=== PATIENT | female | born 1950 | race Caucasian/White ===

== ENCOUNTER 2016-11-19 11:41 | Inpatient (IN) ==
[2016-11-19] MEDS ORDERED: SODIUM CHLORIDE 0.9% 1,000 ML IV STA (12:47)
[2016-11-19] MEDS ORDERED: MECLIZINE 25 MG TABLET PO STA (12:47)
--- NOTE | 2016-11-19 12:47 | Emergency Department Note ---
IConnie Mantricia, am scribing for, and in the presence of, Sylvia Peck DO 12:37. I, Sylvia Peck DO, personally performed the services described in this documentation, ascribed by Shanthi Rosales in my presence, and it is both accurate and complete . Arrival - Arrival Chief Complaint: Dizziness Stated Complaint: problems Standing, Right side weak ED Nursing Triage Note: C/O " DIZZINESS SINCE LAST EVENING., STATES GETTING WORSE., FAMILY MEMBER STATES SHE FELL ON MONDAY AND HAS HAD THE DIZZINESS SINCE THEN, ALSO STATES HAS A HEADACHE., STATES SHE JUST WEAK ALL OVER., STATES WAS EVALUATED HERE ON MONDAY AT THE TIME OF THE FALL Mode of Arrival: Wheelchair Limitations: No Limitations Source: Patient Time Seen by Provider: 11/19/16 12:13 - History of Present Illness HPI Narrative: Pt is a 66 y/o white female arriving to the ED by EMS with c/o dizziness that onset yesterday. She states the pain is worsening and she has a headache. She fell Monday and Monday and hit her head both times. She was given a CT head due to her Monday episode. Pt's PSHx is is brain surgery 11 years ago due to right-sided brain tumor. She lives alone with brother a few minutes away. Onset (ago): day(s) Consistency: constant Severity: mild Quality: aching Allergies/Adverse Reactions: Allergies Allergy/AdvReac Type Severity Reaction Status Date / Time Sulfa (Sulfonamide Allergy RASH Verified 11/19/16 11:50 Antibiotics) promethazine [From Phenergan] AdvReac Confusion Verified 11/19/16 11:50 Home Medications: Home Medications Medication Instructions Recorded Confirmed Type Dexlansoprazole [Dexilant] 60 mg PO DAILY 11/24/14 11/19/16 History Fluticasone 50 Mcg Nasal [place] 2 spray BOTH NARES DAILY 11/24/14 11/19/16 History [Flonase Nasal [place]] Meclizine [Antivert] 25 mg PO QID #40 tablet 11/22/15 11/19/16 Rx Alendronate [Fosamax] 70 mg PO MO 11/15/16 11/19/16 History Docusate Sodium [Colace] 100 mg PO BEDTIME 11/15/16 11/19/16 History Escitalopram [Lexapro] 10 mg PO DAILY 11/15/16 11/19/16 History Levothyroxine Tab [Synthroid Tab] 75 mcg PO DAILY 11/15/16 11/19/16 History Lisinopril 15 mg PO DAILY 11/15/16 11/19/16 History Metoclopramide Tab [Reglan Tab] 5 mg PO TID 11/15/16 11/19/16 History Metoprolol Succinate Xl [Toprol Xl] 50 mg PO BEDTIME 11/15/16 11/19/16 History Solifenacin [Vesicare] 5 mg PO DAILY 11/15/16 11/19/16 History Review of System - Review of System Constitutional: Absent: chills, diaphoresis, fever Eyes: Absent: discharge, pain, redness Head/Ears/Nose/Throat: Absent: earache Respiratory: Absent: cough Cardiovascular: Absent: chest pain, palpitations, dyspnea on exertion Gastrointestinal: Absent: abdominal pain, nausea, vomiting, diarrhea Genitourinary female: Absent: abnormal menses, dysuria, discharge Musculoskeletal: Absent: arm pain, back pain, lower back pain, leg pain, neck pain Skin: Present: as per HPI. Absent: rash, lesions Neurological: Present: headache, vertigo Psychiatric: Absent: anxiety, depression Medical,Surgical,& Family Hx - Medical History Cardio: History of: Cardiac Dysrhythmia, Hypertension No history of: Aneurysm, Cerebrovascular Disease Neurology: History of: Seizures (resolved), Neurological Problems (status post resection of a brain tumor) HEENT: History of: Ear Problem (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 [place]) Genitourinary: History of: Recurring Urinary Tract Infections Musculoskeletal: History of: Back/Neck Problems, Degenerative Disk Disease No history of: Amputation Other: History of: Miscellaneous Medical Problems (meningioma ) - Surgical History Cardiac Surgeries: Patient Denies: Femoral-Popliteal Bypass Graft, Cardiac Catheterization, Cardiac Surgery, Carotid Endarterectomy, Internal Defibrillator, Vascular Access Devices Thoracic Surgeries: Patient denies;: Lobectomy Neurologic Surgeries: Surgical HX of: Neurologic Surgery (brain surgery 2005) HEENT Surgeries: Patient denies: Carotid Endarterectomy Abdominal Surgeries: Patient denies: Abdominal Surgery, Splenectomy Reproductive Surgeries: Surgical HX of;: Hysterectomy Patient denies;: Genitourinary Surgery Orthopedic Surgeries: Surgical HX of;: Orthopedic Surgery (KNEE SCOPES) - Family History Family History: Reports;: Family Cancer, Family Diabetes, Family Heart Disease Denies;: Family Anesthesia Reaction, Family Hypertension, Family Psychiatric Problems, Family Stroke - Social History Smoking Status: Never smoker Frequency of Alcohol Use: None Type of Drug Use: None Exam Vital Signs: Vital Signs Temperature 98.2 F 11/19/16 12:01 Pulse Rate 99 H 11/19/16 15:45 Respiratory Rate 15 11/19/16 15:00 Blood Pressure 137/78 11/19/16 15:45 O2 Sat by Pulse Oximetry 99 11/19/16 15:45 - General General appearance: alert, in no apparent distress - Head Head exam: Present: atraumatic, normocephalic, normal inspection - Eye Eye exam: Present: normal appearance, PERRL, EOMI - ENT ENT exam: Present: normal exam, normal oropharynx, mucous membranes moist, TM's normal bilaterally, normal external ear exam - Neck Neck exam: Present: normal inspection, full ROM, trachea midline. Absent: tenderness - Chest Chest inspection: Present: normal inspection, symmetric chest wall rise. Absent : tenderness - Respiratory Respiratory exam: Present: normal lung sounds bilaterally - Cardiovascular Cardiovascular exam: Present: regular rate, normal rhythm, normal heart sounds - Abdominal Exam Abdominal exam: Present: soft, normal bowel sounds. Absent: distention, tenderness, guarding, rebound - Extremities Exam Extremities exam: Present: normal inspection, full ROM, normal capillary refill. Absent: tenderness, pedal edema - Back Exam Back exam: Present: normal inspection, full ROM. Absent: tenderness - Neurological Exam Neurological exam: Present: alert, oriented X3, CN II-XII intact, reflexes normal - Psychiatric Psychiatric exam: Present: normal affect, normal mood - Skin Skin exam: Present: warm, dry, intact, normal color, other (right-sided brain surgery scar ) Results - Labs CBC & BMP: 11/19/16 12:39 11/19/16 12:39 - Diagnostic Findings Procedure: CT: report reviewed by me (Head: No acute intracranial abnormality compared to the previous study.Postsurgical changes in the right temporal lobe region as before. ) Disposition Disposition: Still a Patient Condition: Stable
[2016-11-19 12:56] LABS: Basophils % 0.2 % (0.0-0.8); Eosinophils # 0.1 10*3/uL (0.0-0.87); Hematocrit 34.9 VOL% (35.7-47.0); Hemoglobin 11.8 GM/DL (12.0-16.0); Immature Granulocytes % 0.5 %; Immature Granulocytes Absolute 0.03 #; Lymphocytes # 0.7 10*3/uL (1.4-4.0); Mean Corpuscular HGB Conc 33.8 GM/DL (32-36); Mean Corpuscular Hemoglobin 30 PG (27-34); Mean Corpuscular Volume 89.7 FL (87-102); Mean Platelet Volume 10.3 FL (9.6-12.0); Monocytes # 0.7 10*3/uL (0.11-0.8); Monocytes % 12.4 % (1.7-12.7); Neutrophils # 4.4 10*3/uL (1.4-7.4); Neutrophils % 74.9 % (38.7-73.9); Platelet Count 231 T/CUMM (130-400); Red Blood Count 3.89 MC/CUMM (3.8-5.5); White Blood Count 5.9 T/CUMM (4-12)
[2016-11-19 13:06] LABS: Apearance,Urine CLEAR (Clear); Bacteria,Urine Occasional /HPF (Few); Bilirubin,Urine Negative (Negative); Blood, Urine Negative (Negative); Glucose,Urine (UA) Negative (Negative); Ketones,Urine Negative (Negative); Mucus,Urine Occasional /LPF (Occasional); Nitrite,Urine Negative (Negative); Protein,Urine Negative; RBC,Urine 2 /HPF (0-4); Squamous Epithelial Cell,Urine Occasional /HPF (0-10); Urine Color Yellow (Yellow); Urine Specific Gravity 1.009 (1.001-1.035); Urine Urobilinogen < 2.0 EU/DL (0.2-1.0); WBC,Urine 1 /HPF (0-6)
[2016-11-19] MEDS ORDERED: MECLIZINE 25 MG TABLET ONE (13:07)
[2016-11-19 13:18] LABS: Albumin 3.9 G/DL (3.4-5.0); Bilirubin,Total 0.4 MG/DL (0.2-1.0); Calcium 9.2 MG/DL (8.5-10.1); Osmolality,Calculated 270.2 MOS/KG (273-304); Potassium 4.7 MMOL/L (3.5-5.1); Total Protein 6.5 G/DL (6.4-8.3)
--- NOTE | 2016-11-19 13:56 | CT Report ---
History: Dizziness and headache. Recent fall on November 15, 2016. History of previous brain tumor status post resection Date: 11/19/2016 Study: CT head without contrast Comparison exam: CT head November 15, [address] sections were obtained through the head without IV contrast. Total DLP measures 981.6 mGy*cm. This CT exam was performed using one or more the following dose reduction techniques: Automated exposure control, adjustment of the MA and/or KV according to patient size, or use of iterative reconstruction technique. The patient is status post remote right frontotemporal craniotomy. There is encephalomalacia of the underlying right temporal lobe. There is no obvious new or enlarging mass on this noncontrast study. The ventricles are midline in position without evidence of hydrocephalus. There is no gross CT evidence of acute cortical stroke. There is no acute intracranial hemorrhage. There is no extra-axial hematoma. There is no acute abnormality of the calvarium. There is a mottled appearance of the bony clivus as on the previous study Impression: No acute intracranial abnormality compared to the previous study. Postsurgical changes in the right temporal lobe region as before PROCEDURE INTERPRETED AT [facility] DEPARTMENT OF RADIOLOGY Final Report Signed by: Dr. Carol Naik
--- NOTE | 2016-11-19 16:02 | Hospitalist History & Physical ---
<Sarah Whittaker - Last Filed: 11/19/16 15:57> Assessment and Plan - Time spent with patient Time spent with patient: Greater than 30 minutes (1) Dizziness Status: Resolved Assessment and plan: Erick is a 66-year-old white female with history of right brain meningioma, hypertension, and hypothyroidism admitted by the hospitalist service with increased dizziness and weakness. Labs are relatively normal, UA negative, and CT of the brain is normal. Dr. Alvarado has seen and examined the patient and further recommendations to follow. Dizziness--consult Dr. Landa to get his recommendations. I wonder if patient may need an MRI to evaluate any worsening. The patient states she would not do anything about it even if it was worse. Go ahead and check carotid ultrasound, and orthostatic blood pressures. We will go ahead and give her some IV fluids. Her ear exam showed no fluid but with patient's complaints of right ear pain in and behind the ear will go ahead and consult ENT for his recommendations. Weakness--consult PT and OT. With patient's progressive dizziness with falls, it may behoove her to either move in with her brother who is very attentive, or consider placement in assisted living facility. Patient has been having home health physical therapy for the last few weeks. Back pain--patient is seen Dr. Parks and he had prescribed her some Ultram for pain. We will go ahead and restart this today. Current Visit: No (2) Weakness Status: Resolved Current Visit: No (3) History of brain tumor Status: Acute Current Visit: No (4) Back pain Status: Acute Current Visit: Yes History of Present Illness Chief complaint: Dizziness and falls History of present illness: Ms. Suarez is a 66 year old female with history of Right brain meningioma, hypertension and hypothyroidism presenting to the ED with multiple falls, dizziness, and increasing weakness. Patient states that she fell and hit her head on 11/15/16 and was seen in the ED by Dr. Zamudio. Patient was sent home and states she fell again on Monday and this morning when she woke up she couldnt even get out of bed. Patient lives by herself and her brother lives close. He states he had to carry her to the car because she was so weak. Patient states she has had right-sided headache with numbness and tingling behind her right ear. She feels fine when she is lying flat but when she goes to sit up or stand she gets extremely dizzy. This is not associated with nausea and vomiting. She states the room does not spin. She also has a pinched nerve in her lumbar spine that radiates to her left hip and Dr. Parks was planning an MRI later next week in preparation for injection. Patient also states they had to readjust her Synthroid about a month and a half ago and this was rechecked last week and it was normal. Her primary care physician is Dr. Kellogg. patient has multiple admissions and ED visits since 2013 due to the same complaints. Patient is on Antivert she states this does not seem to be helping and she stopped it about a week ago. She also states she has not taken any of her blood pressure medicines nor her Vesicare because she just has not been feeling well. Dr. Landa has seen the patient but it has been approximately 1 year. MRI done at that time 01/11/2016 shows status post craniotomy with chronic encephalomalacia in the right temporal lobe. She had extensive cystic/sclerotic changes in the clivus, right petrous apex, and right greater sphenoid wing. There is minimally progressive abnormal enhancement felt consistent with residual probable meningioma including involvement of the right 7th and 8th nerves. CT done today shows no acute intracranial abnormality compared to the previous study done on Monday. There is no obvious new or enlarging mass. In no acute hemorrhage. Labs show her to be anemic but not grossly 11.8/34.9 with a left shift. Her BMP is normal and UA is negative. Upon presentation to the ED her blood pressures were running 103/ 72 half of her medications. It is slowly climbed to 151/83 now and during exam it was 150/100. Patient's case was discussed with Dr. Peck the ED physician and Dr. Alvarado the hospitalist it was decided to admit patient for further evaluation. Home Medications Medication Instructions Recorded Confirmed Type Dexlansoprazole [Dexilant] 60 mg PO DAILY 11/24/14 11/19/16 History Fluticasone 50 Mcg Nasal [place] 2 spray BOTH NARES DAILY 11/24/14 11/19/16 History [Flonase Nasal [place]] Meclizine [Antivert] 25 mg PO QID #40 tablet 11/22/15 11/19/16 Rx Alendronate [Fosamax] 70 mg PO MO 11/15/16 11/19/16 History Docusate Sodium [Colace] 100 mg PO BEDTIME 11/15/16 11/19/16 History Escitalopram [Lexapro] 10 mg PO DAILY 11/15/16 11/19/16 History Levothyroxine Tab [Synthroid Tab] 75 mcg PO DAILY 11/15/16 11/19/16 History Lisinopril 15 mg PO DAILY 11/15/16 11/19/16 History Metoclopramide Tab [Reglan Tab] 5 mg PO TID 11/15/16 11/19/16 History Metoprolol Succinate Xl [Toprol Xl] 50 mg PO BEDTIME 11/15/16 11/19/16 History Solifenacin [Vesicare] 5 mg PO DAILY 11/15/16 11/19/16 History Allergies Allergy/AdvReac Type Severity Reaction Status Date / Time Sulfa (Sulfonamide Allergy RASH Verified 11/19/16 11:50 Antibiotics) promethazine [From Phenergan] AdvReac Confusion Verified 11/19/16 11:50 Medical,Surgical,& Family Hx - Medical History Cardio: History of: Cardiac Dysrhythmia, Hypertension No history of: Aneurysm, Cerebrovascular Disease Neurology: History of: Seizures (resolved), Neurological Problems (status post resection of a brain tumor) HEENT: History of: Ear Problem (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 [place]) Genitourinary: History of: Recurring Urinary Tract Infections Musculoskeletal: History of: Back/Neck Problems, Degenerative Disk Disease No history of: Amputation Other: History of: Miscellaneous Medical Problems (meningioma ) - Surgical History Cardiac Surgeries: Patient Denies: Femoral-Popliteal Bypass Graft, Cardiac Catheterization, Cardiac Surgery, Carotid Endarterectomy, Internal Defibrillator, Vascular Access Devices Thoracic Surgeries: Patient denies;: Lobectomy Neurologic Surgeries: Surgical HX of: Neurologic Surgery (brain surgery 2005) HEENT Surgeries: Patient denies: Carotid Endarterectomy Abdominal Surgeries: Patient denies: Abdominal Surgery, Splenectomy Reproductive Surgeries: Surgical HX of;: Hysterectomy Patient denies;: Genitourinary Surgery Orthopedic Surgeries: Surgical HX of;: Orthopedic Surgery (KNEE SCOPES) - Family History Family History: Reports;: Family Cancer, Family Diabetes, Family Heart Disease Denies;: Family Anesthesia Reaction, Family Hypertension, Family Psychiatric Problems, Family Stroke - Social History Smoking Status: Never smoker Frequency of Alcohol Use: None Type of Drug Use: None Marital Status: Lives With:: Alone Functional capacity: uses cane/walker Review of systems: Complete 10 system review of systems was obtained and pertinent negatives and positives per HPI Exam - Constitutional Vitals: Period Temp Pulse Resp BP Sys/[place] Pulse Ox Last 24 Hr 102 15 128/85 99 Exam: Constitutional System: No distress. No tremulousness. Head: Normocephalic, atraumatic. Ears, Nose and Throat System: No evidence of Otitis or Mastoiditis. No epistaxis or discharge Eyes System: Pupils equal, round, and reactive. Extraocular muscles intact. Neck: Supple, without adenopathy, No jugular venous distention. No thyromegaly, neck mass, or prior surgery apparent. Respiratory System: Chest clear to auscultation. Cardiovascular System: Heart with regular rate and rhythm. No murmur. GI System: Abdomen soft, nontender. Normo active bowel sounds present. Musculoskeletal System: limbs with no pedal edema. Full distal pulses. Neurological System: No discernable sensory deficit. No aphasia Psychiatric System: Conversation is rational Results - Labs CBC & BMP: 11/19/16 12:39 11/19/16 12:39 Lab Results: I have reviewed the past 24 hour labs - Diagnostic Findings Procedure: CT: report reviewed by me (CT the head shows no acute abnormality) <Prabhu Alvarado - Last Filed: 11/19/16 16:46> History of Present Illness History of present illness: This is a shared visit with nurse practitioner, I independently reviewed and examined patient to the nurse practitioner at bedside. Ms. Suarez is a 66 year old female A case of recurrent dizziness/vertigo and falls in a patient with previous meningioma and right craniectomy. She has an extensive history for which she takes multiple medication. Recently was in the ER for worsening dizziness on fall. She had a repeat episode today presented to the ER. Initial CT scan done today negative for any structural cause of her vertigo. Reviewing her symptoms, her dizziness is positional, worse when she is sitting up, standing and resolves in supine position. There is no report of nasal stuffiness or discharge, no ear discharge but pain on the right side especially after my examination. No fever No chest pain, palpitation, orthopnea, PND. She had been treated with meclizine in the past with some response but she noted that recently dizziness has not been responsive to meclizine. Examination: Reported to be hypotensive at presentation Chronically ill looking Awake alert and oriented Previous surgical scar on the head. ENT exam, chronic changes in the right ear, no clear features of inflammation in the right ear at this time but again was unable to get a detailed exam because of right ear pain. We will ask ENT to evaluate her. Assessment: Recurrent positional vertigo in a patient with previous craniectomy for meningioma -etiology is unclear, vestibular causes Uncontrolled hypertension Mild dehydration with elevated BUN/creatinine ratio Plan: Orthostatic blood pressure monitoring We will continue Antivert as well as zofran prn for symptom relief. IV fluid hydration Will need a detailed ear examination, consult ENT We will invite neurology see any new recommendations. Physical and Occupational Therapy to evaluate and help with gait stability Check EKG Check vitamin D levels Exam - Constitutional Vitals: Period Temp Pulse Resp BP Sys/[place] Pulse Ox Last 24 Hr 99-102 15 128-137/78-85 99-99 Results - Labs CBC & BMP: 11/19/16 12:39 11/19/16 12:39
[2016-11-19] MEDS ORDERED: guaiFENesin/DM ER 600-30 MG TABLET PO PRN (18:07)
[2016-11-19] MEDS ORDERED: diphenhydrAMINE CAP 25 MG CAPSULE PO PRN (18:07)
[2016-11-19] MEDS ORDERED: DOCUSATE SODIUM 100 MG CAPSULE PO PRN (18:07)
[2016-11-19] MEDS ORDERED: ONDANSETRON 4 MG/2 ML VIAL IV PRN (18:07)
[2016-11-19] MEDS: SODIUM CHLORIDE 0.9% 1,000 ML IV SCH (19:31)
[2016-11-19] MEDS: PANTOPRAZOLE 40 MG TABLET PO SCH (19:32)
[2016-11-19] MEDS: LEVOTHYROXINE 75 MCG TABLET PO SCH (19:32)
[2016-11-19] MEDS: ESCITALOPRAM 10 MG TABLET PO SCH (19:32)
[2016-11-19] MEDS: ENOXAPARIN 40 MG/0.4 ML SYRINGE SUBCUT SCH (19:34)
[2016-11-19] MEDS: METOPROLOL SUCCINATE XL 50 MG TABLET PO SCH (20:52)
[2016-11-19] MEDS: DOCUSATE SODIUM 100 MG CAPSULE PO SCH (20:52)
[2016-11-20] MEDS: SODIUM CHLORIDE 0.9% 1,000 ML IV SCH ×3 (05:52→18:15)
[2016-11-20] MEDS: LEVOTHYROXINE 75 MCG TABLET PO SCH (08:34)
[2016-11-20] MEDS: PANTOPRAZOLE 40 MG TABLET PO SCH (08:34)
[2016-11-20] MEDS: ESCITALOPRAM 10 MG TABLET PO SCH (08:34)
[2016-11-20] MEDS: MECLIZINE 25 MG TABLET PO SCH (08:37)
--- NOTE | 2016-11-20 08:38 | EKG Report ---
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
--- NOTE | 2016-11-20 11:40 | XRay Report ---
History: Shortness of breath Date: 11/20/2016 Study: Chest x-ray PA and lateral Comparison exam: February 28, 2016 chest x-ray The cardiac silhouette is not enlarged. There is no mediastinal mass. The pulmonary vasculature is not engorged. There are scattered emphysematous changes within the lungs. There is no acute pulmonary infiltrate. There is improved aeration in the lung bases compared to the previous study. There is no layering pleural effusion. Osseous structures are unchanged. Impression: Improved aeration in the lung bases compared to the previous study. Chronic lung changes to include emphysema. No adverse interval changes compared to the previous study PROCEDURE INTERPRETED AT [facility] DEPARTMENT OF RADIOLOGY Final Report Signed by: Dr. Carol Naik
--- NOTE | 2016-11-20 11:56 | Consultation ---
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 She may have some fluid behind the right tympanic membrane. Dr. Barrera will need to be consulted in morning to probably see in his office for otomicroscopy and further w/u and treatment. Current Visit: No History of Present Illness - Data of Consult Consult date: 11/20/16 Requesting Physician: Prabhu Alvarado - Consult Narrative Reason for consult: ear pain, dizziness History of present illness: Ms. Suarez is a 66 year old female history per admission HPI, no true vertigo, but right periauricular pain. Previously under the care of Dr. Mcneal, also, recently seen by Dr. Barrera. No useful function in right ear due to meningoma treatment. CC: Prabhu Alvarado MD - Home Medications and Allergies Home Medications: Home Medications Medication Instructions Recorded Confirmed Type Dexlansoprazole [Dexilant] 60 mg PO DAILY 11/24/14 11/19/16 History Fluticasone 50 Mcg Nasal [place] 2 spray BOTH NARES DAILY 11/24/14 11/19/16 History [Flonase Nasal [place]] Alendronate [Fosamax] 70 mg PO MO 11/15/16 11/19/16 History Docusate Sodium [Colace] 100 mg PO BEDTIME 11/15/16 11/19/16 History Escitalopram [Lexapro] 10 mg PO DAILY 11/15/16 11/19/16 History Levothyroxine Tab [Synthroid Tab] 75 mcg PO DAILY 11/15/16 11/19/16 History Metoclopramide Tab [Reglan Tab] 5 mg PO TID 11/15/16 11/19/16 History Solifenacin [Vesicare] 5 mg PO DAILY 11/15/16 11/19/16 History Allergies/Adverse Reactions: Allergies Allergy/AdvReac Type Severity Reaction Status Date / Time Sulfa (Sulfonamide Allergy RASH Verified 11/19/16 11:50 Antibiotics) promethazine [From Phenergan] AdvReac Confusion Verified 11/19/16 11:50 Medical,Surgical,& Family Hx - Medical History Cardio: History of: Cardiac Dysrhythmia, Hypertension No history of: Aneurysm, Cerebrovascular Disease Neurology: History of: Seizures (resolved), Neurological Problems (status post resection of a brain tumor) HEENT: History of: Ear Problem (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 [place]) Genitourinary: History of: Recurring Urinary Tract Infections Musculoskeletal: History of: Back/Neck Problems, Degenerative Disk Disease No history of: Amputation Other: History of: Miscellaneous Medical Problems (meningioma ) - Surgical History Cardiac Surgeries: Patient Denies: Femoral-Popliteal Bypass Graft, Cardiac Catheterization, Cardiac Surgery, Carotid Endarterectomy, Internal Defibrillator, Vascular Access Devices Thoracic Surgeries: Patient denies;: Lobectomy Neurologic Surgeries: Surgical HX of: Neurologic Surgery (brain surgery 2005) HEENT Surgeries: Patient denies: Carotid Endarterectomy Abdominal Surgeries: Patient denies: Abdominal Surgery, Splenectomy Reproductive Surgeries: Surgical HX of;: Hysterectomy Patient denies;: Genitourinary Surgery Orthopedic Surgeries: Surgical HX of;: Orthopedic Surgery (KNEE SCOPES) - Family History Family History: Reports;: Family Cancer, Family Diabetes, Family Heart Disease Denies;: Family Anesthesia Reaction, Family Hypertension, Family Psychiatric Problems, Family Stroke - Social History Smoking Status: Never smoker Frequency of Alcohol Use: None Type of Drug Use: None Exam - Constitutional Vitals: Period Temp Pulse Resp BP Sys/[place] Pulse Ox Last 24 Hr 98 F-98.4 F 75-102 12-20 100-146/62-88 94-100 - ENT ENT exam: Present: other (possible fluid right middle ear (lack of appropriate size ear speculum precludes good exam)) - Neck Neck exam: Present: normal inspection Results - Labs CBC & BMP: 11/19/16 12:39 11/19/16 12:39 - Impressions possible right middle ear effusion
--- NOTE | 2016-11-20 13:08 | Hospitalist Progress Note ---
Assessment and Plan - Time spent with patient Time spent with patient: Greater than 30 minutes (1) Dizziness Status: Acute Current Visit: No (2) History of brain tumor Status: Acute Current Visit: No (3) Head contusion Status: Acute Current Visit: No (4) Dehydration Status: Acute Current Visit: No (5) Back pain Status: Acute Assessment and plan: Her vertigo is likely related to her vestibular disorder, I appreciate ENT consult, will defer further ENT management them. Continue gentle IV fluid hydration, watch for fluid overload. Continue symptomatic management with Zofran and Antivert. Physical and Occupational Therapy. I doubt that there is much we can do to help her from a medical standpoint, when her symptoms improve slightly with symptomatic management, may discharge to outpatient follow-up with ENT Pain control. DVT prophylaxis Current Visit: Yes Hospitalist: Subjective Interval history: Admitted yesterday for chronic recurrent positional vertigo. Her symptoms have slightly improved this morning, she was able to stand to get a chest x-ray done with no dizziness. Her vital signs showed significant orthostatic changes. She has been on IV fluid hydration for prerenal azotemia which may be due to dehydration. Complains of mild back pain which is chronic, she takes tramadol for it but states that she has received only one dose since admission. ENT evaluation noted, Dr. Barrera to see after this for otomicroscopy. Exam - Constitutional Vitals: Period Temp Pulse Resp BP Sys/[place] Pulse Ox Last 24 Hr 98 F-98.4 F 75-102 12-20 100-146/62-88 94-100 General appearance: under weight - Head Head exam: Present: atraumatic - ENT ENT exam: Present: other (See ENT consult) - Respiratory Respiratory exam: Present: clear to auscultation bilaterally - Cardiovascular Cardiovascular exam: Present: regular rate and rhythm - GI/Abdominal GI/Abdominal exam: Present: normal bowel sounds, soft. Absent: tenderness - Extremities Exam Extremities exam: Absent: edema - Neurological Exam Neurological exam: Present: alert, oriented X3 - Skin Skin exam: Present: normal color, warm, dry Results - Labs CBC & BMP: 11/19/16 12:39 11/19/16 12:39 Lab Results: I have reviewed the past 24 hour labs
[2016-11-20] MEDS: traMADol 50 MG TABLET PO PRN (16:40)
[2016-11-20] MEDS: METOCLOPRAMIDE 5 MG TABLET PO SCH (16:40)
[2016-11-20] MEDS: ENOXAPARIN 40 MG/0.4 ML SYRINGE SUBCUT SCH (17:38)
--- NOTE | 2016-11-20 17:40 | Neurology Consult Note ---
History of Present Illness History of present illness: Ms. Suarez is a 66 year old right-handed white lady with history of Right brain meningioma, hypertension and hypothyroidism presenting to the ED with multiple falls, dizziness, and increasing weakness. Patient states that she fell and hit her head on 11/15/16 and was seen in the ED by Dr. Zamudio. Patient was sent home and states she fell again on Monday and this morning when she woke up she couldnt even get out of bed. Patient lives by herself and her brother lives close. He states he had to carry her to the car because she was so weak. Patient states she has had right-sided headache with numbness and tingling behind her right ear. She feels fine when she is lying flat but when she goes to sit up or stand she gets extremely dizzy. This is not associated with nausea and vomiting. She states the room does not spin. She also has a pinched nerve in her lumbar spine that radiates to her left hip and Dr. Parks was planning an MRI later next week in preparation for injection. Patient also states they had to readjust her Synthroid about a month and a half ago and this was rechecked last week and it was normal. Her primary care physician is Dr. Kellogg. patient has multiple admissions and ED visits since 2013 due to the same complaints. MRI done on 01/11/2016 shows status post craniotomy with chronic encephalomalacia in the right temporal lobe. CT done today shows no acute intracranial abnormality compared to the previous study done on Monday. Home Medications Medication Instructions Recorded Confirmed Type Dexlansoprazole [Dexilant] 60 mg PO DAILY 11/24/14 11/19/16 History Fluticasone 50 Mcg Nasal [place] 2 spray BOTH NARES DAILY 11/24/14 11/19/16 History [Flonase Nasal [place]] Alendronate [Fosamax] 70 mg PO MO 11/15/16 11/19/16 History Docusate Sodium [Colace] 100 mg PO BEDTIME 11/15/16 11/19/16 History Escitalopram [Lexapro] 10 mg PO DAILY 11/15/16 11/19/16 History Levothyroxine Tab [Synthroid Tab] 75 mcg PO DAILY 11/15/16 11/19/16 History Metoclopramide Tab [Reglan Tab] 5 mg PO TID 11/15/16 11/19/16 History Solifenacin [Vesicare] 5 mg PO DAILY 11/15/16 11/19/16 History Allergies Allergy/AdvReac Type Severity Reaction Status Date / Time Sulfa (Sulfonamide Allergy RASH Verified 11/19/16 11:50 Antibiotics) promethazine [From Phenergan] AdvReac Confusion Verified 11/19/16 11:50 12 point system: reviewed and no additional remarkable complaints except as stated Medical,Surgical,& Family Hx - Medical History Cardio: History of: Cardiac Dysrhythmia, Hypertension No history of: Aneurysm, Cerebrovascular Disease Neurology: History of: Seizures (resolved), Neurological Problems (status post resection of a brain tumor) HEENT: History of: Ear Problem (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) Genitourinary: History of: Recurring Urinary Tract Infections Musculoskeletal: History of: Back/Neck Problems, Degenerative Disk Disease No history of: Amputation Other: History of: Miscellaneous Medical Problems (meningioma ) - Surgical History Cardiac Surgeries: Patient Denies: Femoral-Popliteal Bypass Graft, Cardiac Catheterization, Cardiac Surgery, Carotid Endarterectomy, Internal Defibrillator, Vascular Access Devices Thoracic Surgeries: Patient denies;: Lobectomy Neurologic Surgeries: Surgical HX of: Neurologic Surgery (brain surgery 2005) HEENT Surgeries: Patient denies: Carotid Endarterectomy Abdominal Surgeries: Patient denies: Abdominal Surgery, Splenectomy Reproductive Surgeries: Surgical HX of;: Hysterectomy Patient denies;: Genitourinary Surgery Orthopedic Surgeries: Surgical HX of;: Orthopedic Surgery (KNEE SCOPES) - Family History Family History: Reports;: Family Cancer, Family Diabetes, Family Heart Disease Denies;: Family Anesthesia Reaction, Family Hypertension, Family Psychiatric Problems, Family Stroke - Social History Smoking Status: Never smoker Frequency of Alcohol Use: None Type of Drug Use: None Exam - Constitutional Vitals: Period Temp Pulse Resp BP Sys/[place] Pulse Ox Last 24 Hr 97.4 F-98.6 F 75-87 16-20 100-146/28-77 94-100 Exam: GENERAL: Patient is in no acute distress. NECK: Neck is supple. There is no JVD. No carotid bruits present. No thyroid masses. CVS: First and second heart sounds are normal. There is no S3 present. Regular rate and rhythm. RESPIRATORY: Lungs are clear to auscultation without any rales or rhonchi. ABDOMEN: Soft and non-tender. Bowel sounds are present. There is no hepatosplenomegaly. EXT: There is no palpable edema. Peripheral pulses are present. Skin: No rashes Central Nervous system: General: Alert, awake and Oriented x 3 Speech: Fluent Comprehension: Intact and normal Facial expressions: Normal Cranial Nerves: CN1/Olfactory: Normal CN II/ Optic: Normal, Visual Paredes unreliable CN III, and : PATRICE & EOMI CN V: Normal & intact CN VII: face is symmetric CNVIII: Normal CN XI/X/XI/XII: Intact and Normal Motor: Bulk and Tone is normal. Strength in the right 5/5 Strength in the left 5/5 Sensory: Grossly intact for all the modalities of PP, LT and temp sense Reflexes: 1+ and symmetrical Cerebellar function: Normal finger to nose and heel to humphries testing. Toes: Equivocal Gait: Markedly ataxic gait Results - Labs CBC & BMP: 11/19/16 12:39 11/19/16 12:39 Assessment and Plan (1) Ataxic gait Status: Acute Assessment and plan: MRI of the brain without contrast Continue Lovenox for now Consult PT and OT Current Visit: Yes
[2016-11-20] MEDS: METOPROLOL SUCCINATE XL 50 MG TABLET PO SCH (20:57)
[2016-11-20] MEDS: DOCUSATE SODIUM 100 MG CAPSULE PO SCH (20:57)
[2016-11-21] MEDS: SODIUM CHLORIDE 0.9% 1,000 ML IV SCH ×2 (01:59→17:17)
[2016-11-21] MEDS: METOCLOPRAMIDE 5 MG TABLET PO SCH ×3 (08:20→17:16)
[2016-11-21] MEDS: MECLIZINE 25 MG TABLET PO SCH (08:44)
[2016-11-21] MEDS: ESCITALOPRAM 10 MG TABLET PO SCH (08:44)
[2016-11-21] MEDS: LEVOTHYROXINE 75 MCG TABLET PO SCH (08:45)
[2016-11-21] MEDS: PANTOPRAZOLE 40 MG TABLET PO SCH (08:46)
--- NOTE | 2016-11-21 15:31 | Event Note ---
Patient is gone for MRI. I will be away. I can be reached over the phone for further recommendations.
--- NOTE | 2016-11-21 17:04 | Magnetic Resonance Report ---
Referring physician: Sagrario Molina MD Exam: MRI brain without contrast Date: November 21, 2016 Comparison: CT brain without contrast March 21, 2017, MRI brain January 11, 2016 Reason: Weakness, dizziness, previous brain surgery, patient states she fell and hit her head on Tuesday November 15, 2016, right-sided headache with numbness The patient is an inpatient who was admitted on November 19, 2016. Technique: MRI of the brain was performed without the use of contrast. Obtained images include sagittal T1, axial diffusion-weighted, axial FLAIR, axial T2, coronal T2, axial gradient and axial T1 sequences. A 1.5 Conchis magnet was used. Findings: The patient is status post right frontotemporal craniotomy, and there is again encephalomalacia at the right temporal lobe, slightly involving the adjacent left frontal lobe. No hydrocephalus or midline shift is present. There are minimal scattered areas of FLAIR hyperintensity at the periventricular white matter. This is nonspecific but likely represents minimal chronic vascular ischemic change. There is also mild stable FLAIR hyperintensity at the right middle cerebellar peduncle. This likely represents an area of remote infarction. There is no evidence of recent intracranial hemorrhage or an acute infarction. A small remote lacunar infarction is again seen within the right thalamus. Major vascular flow voids are visualized. Osseous expansion and abnormal signal are again seen at the clivus, right petrous apex and right greater sphenoid wing. This is similar to the previous MRI performed on January 11, 2016. Differential includes an intraosseous meningioma, fibrous dysplasia or a neoplastic process such as metastatic disease. An intraosseous meningioma, fibrous dysplasia or other nonaggressive process is favored considering the stability. This produces mass effect at the right cerebellar pontine angle, and there may be involvement of the right internal auditory canal which is obscured. There is also fluid within the right mastoid air cells and right middle ear cavity, which is similar to previous studies. The posterior lateral contour of the right globe/eye is flattened. This likely related to surgical change or artifact. The patient may be status post cataract surgery. The sella and brainstem are otherwise unremarkable. There is scattered minimal scattered mucosal thickening within the paranasal sinuses. The left mastoid air cells appear clear. Impression: 1. No acute infarction is identified. 2. The patient is again status post right frontotemporal craniotomy. Encephalomalacia is also again seen at the right temporal lobe, slightly involving the adjacent right frontal lobe. 3. There is osseous expansion and heterogeneous signal at the clivus, right petrous apex and right greater sphenoid wing. This is similar to previous studies and appears stable compared to the prior MRI of January 11, 2016. Differential includes an intraosseous meningioma, fibrous dysplasia or a neoplastic process such as metastatic disease. An intraosseous meningioma, fibrous dysplasia or other nonaggressive process is favored given the stability. This process may involve the right internal auditory canal. 4. Small remote lacunar infarction within the right thalamus and probable minimal chronic microvascular ischemic change. There is also a small remote infarction/encephalomalacia at the right middle cerebellar peduncle. This is similar to before. 5. There is fluid within the right mastoid air cells and right middle ear cavity. This could be related to chronic obstruction from the above-mentioned skull base lesion or could represent chronic mastoiditis. PROCEDURE INTERPRETED AT [facility] DEPARTMENT OF RADIOLOGY Final Report Signed by: Dr. Felipe De La Vega
[2016-11-21] MEDS: ENOXAPARIN 40 MG/0.4 ML SYRINGE SUBCUT SCH (17:16)
--- NOTE | 2016-11-21 18:13 | Hospitalist Progress Note ---
Assessment and Plan (1) Dizziness Status: Acute Assessment and plan: Most likely related to vestibular dysfunction in the setting of a known brain tumor. ENT did evaluate over the weakend and recommends consultation to Dr. Barrera for otomicroscopy and then determine next steps in treatment. Will place c/ s. MRI pending but not sure if this will play much of role in dispositon. Current Visit: No (2) Weakness Status: Resolved Current Visit: No (3) History of brain tumor Status: Acute Current Visit: No Hospitalist: Subjective Interval history: Patient evaluated today prior to MRI and results. Symptoms improved but still with difficulty with ambulation. Continue with IVF's for now given orthostatic hypotension which may be contirbuting. However, symptoms most likely related to positional vertigo. ENT consulted and recommends outpatient f/u with Dr. Barrera. MRI results pending. However, patient states that she does not want to proceed any further even in the event of marked abnormality. Exam - Constitutional Vitals: Period Temp Pulse Resp BP Sys/[place]ron[place] Pulse Ox Last 24 Hr 96.9 F-98.5 F 65-71 16-20 124-152/66-76 94-100 General appearance: normal weight - Head Head exam: Present: atraumatic - Neck Neck exam: Present: normal inspection. Absent: lymphadenopathy - Respiratory Respiratory exam: Present: clear to auscultation bilaterally. Absent: rales, rhonchi, wheezes - Cardiovascular Cardiovascular exam: Present: regular rate and rhythm - GI/Abdominal GI/Abdominal exam: Present: normal bowel sounds, soft. Absent: distended, tenderness - Extremities Exam Extremities exam: Absent: edema - Neurological Exam Neurological exam: Present: alert, oriented X3 - Psychiatric Psychiatric exam: Present: normal affect, normal mood - Skin Skin exam: Present: normal color, warm, dry Results - Labs CBC & BMP: 11/19/16 12:39 11/19/16 12:39
[2016-11-21] MEDS: traMADol 50 MG TABLET PO PRN (21:04)
[2016-11-21] MEDS: METOPROLOL SUCCINATE XL 50 MG TABLET PO SCH (21:05)
[2016-11-21] MEDS: DOCUSATE SODIUM 100 MG CAPSULE PO SCH (21:05)
[2016-11-22] MEDS: SODIUM CHLORIDE 0.9% 1,000 ML IV SCH ×2 (00:53)
[2016-11-22] MEDS: MECLIZINE 25 MG TABLET PO SCH (08:15)
[2016-11-22] MEDS: METOCLOPRAMIDE 5 MG TABLET PO SCH ×3 (08:15→16:15)
[2016-11-22] MEDS: PANTOPRAZOLE 40 MG TABLET PO SCH (08:15)
[2016-11-22] MEDS: ESCITALOPRAM 10 MG TABLET PO SCH (08:16)
[2016-11-22] MEDS: LEVOTHYROXINE 75 MCG TABLET PO SCH (08:16)
--- NOTE | 2016-11-22 09:24 | Hospitalist Progress Note ---
Hospitalist: Subjective Interval history: pt was up with rehab this am and stated she was not dizzy, just weak. Tolerating po. No fever. +BM this am. No diarrhea. No cp or SOB. No palpitations Exam - Constitutional Vitals: Period Temp Pulse Resp BP Sys/[place]ron[place] Pulse Ox Last 24 Hr 97.7 F-98.7 F 62-72 18-20 130-166/63-88 96-99 Exam: A and O x 3, abnormal facies. RRR no M CTAB nonlabored Soft, NT, ND, +BS Warm no c.c.e. GREGORY eq. Nonfocal exam except exotropia of right eye Results - Labs CBC & BMP: 11/19/16 12:39 11/19/16 12:39 - Impressions (1) Dizziness/vertigo Status: Acute Assessment and plan: Most likely related to vestibular dysfunction in the setting of a known brain tumor. Reportedly ENT did evaluate and recommends consultation to Dr. Barrera for otomicroscopy and then determine next steps in treatment. MRI brain showed no acute process. Cont Antivert. Current Visit: No (2) Weakness/ Debility Status: improving Current Visit: No - Cont rehab efforts (3) History of brain tumor/ meningioma Status: Acute Current Visit: No - F/U with neuro/neurosurgery outpt (4) lumbar radiculopathy - pain control prn (5) chronic hypothyroidism - cont home meds Awaiting rehab placement. I understand she may be accepted tomorrow. Cont current treatment otherwise. DC IVF. D/W nurse and pt and all questions answered.
[2016-11-22] MEDS: traMADol 50 MG TABLET PO PRN (18:10)
[2016-11-22] MEDS: ENOXAPARIN 40 MG/0.4 ML SYRINGE SUBCUT SCH (21:53)
[2016-11-22] MEDS: DOCUSATE SODIUM 100 MG CAPSULE PO SCH (21:53)
[2016-11-22] MEDS: METOPROLOL SUCCINATE XL 50 MG TABLET PO SCH (21:53)
[2016-11-23] MEDS: PANTOPRAZOLE 40 MG TABLET PO SCH (08:32)
[2016-11-23] MEDS: ESCITALOPRAM 10 MG TABLET PO SCH (08:32)
[2016-11-23] MEDS: MECLIZINE 25 MG TABLET PO SCH (08:32)
[2016-11-23] MEDS: METOCLOPRAMIDE 5 MG TABLET PO SCH ×2 (08:32→12:01)
[2016-11-23] MEDS: LEVOTHYROXINE 75 MCG TABLET PO SCH (08:32)
[2016-11-23] MEDS: SODIUM CHLORIDE 0.9% 1,000 ML IV SCH (09:03)
--- NOTE | 2016-11-23 09:06 | Discharge Summary ---
Hospital Course - Hospital Course Hospital Course: Patient is a 66-year-old female with a history of meningioma status post resection who presented to the hospital with a chief complaint of dizziness and weakness. TSH levels were done and were normal. Urinalysis was unremarkable. Basic labs were unrevealing for acute pathology. MRI of the brain showed no acute process. Patient was started on Antivert. Neurology was consulted and recommended an ENT evaluation. ENT felt it was vestibular dysfunction in the setting of a known brain tumor and recommended consultation with Dr. Barrera for otomicroscopy. Physical and Occupational Therapy were consulted for vestibular training. For her history of meningioma patient was encouraged to follow-up with neurology and neurosurgery outpatient. For chronic hypothyroidism she was continued on her home medication. She was also treated with IV fluids and once well hydrated, patient's IV fluids were discontinued. When she was cleared by all consultants, patient was discharged to rehab for ongoing care. - Time spent with patient Time with patient DS: Greater than 30 minutes (35 minutes) Diagnosis - Discharge Diagnosis (1) Ataxic gait Status: Acute (2) History of brain tumor Status: Acute Specialty Discharge - Follow Up or Referrals Follow up with: Marivel Kellogg M.D. [Primary Care Provider] - 1 Month Franko Barrera DO [Physician] - 2 Weeks Discharge Plan - Discharge Data Disposition: Disch/Xfer-Ip Rehab Fac Condition at Discharge: Stable Discharge Diet: advance to your usual diet Activity: as per physical therapy - Discharge Medications New Docusate Sodium Cap [Colace Cap] 100 mg PO BID PRN #0 capsule PRN Reason: Constipation Meclizine [Antivert] 25 mg PO DAILY tablet Metoprolol Succinate Xl [Toprol Xl] 50 mg PO BEDTIME tablet traMADol TAB [Ultram] 12.5 mg PO Q8H PRN #10 tablet PRN Reason: Pain Continue Fluticasone 50 Mcg Nasal [place] [Flonase Nasal [place]] 2 spray BOTH NARES DAILY Dexlansoprazole [Dexilant] 60 mg PO DAILY Escitalopram [Lexapro] 10 mg PO DAILY Docusate Sodium [Colace] 100 mg PO BEDTIME Levothyroxine Tab [Synthroid Tab] 75 mcg PO DAILY Alendronate [Fosamax] 70 mg PO MO Metoclopramide Tab [Reglan Tab] 5 mg PO TID Discontinued Solifenacin [Vesicare] 5 mg PO DAILY - Follow Up or Referral - Forms/Instructions Exam - Constitutional Vitals: Period Temp Pulse Resp BP Sys/[place]ron[place] Pulse Ox Last 24 Hr 97.8 F-98.8 F 62-73 18-20 120-146/56-86 96-99 Exam: A and O x 3, abnormal facies, sitting on the hospital bed eating breakfast in no acute distress. RRR no M CTAB nonlabored Soft, NT, ND, +BS Warm no c.c.e. GREGORY eq. Nonfocal exam except exotropia of right eye Discharge Results Procedures and tests throughout hospitalization: As noted above DS: Provider Date of admission: 11/19/16 14:43 Primary care physician: Marivel Kellogg M.D. Attending physician on admission: Prabhu Alvarado MD Consults: 11/19/16 16:54 Consult to Dietitian [CONS] Routine Reason for Dietitian: Dietary Consult 11/19/16 18:07 Consult to Case Mgmt/Social Srvs [CONS] Routine Reason for Case Mgmt/Social Srvs: Swingbed/SNF/Mcc Consult to Physician [CONS] Routine Comment: dizziness/weakness Consulting Provider: Luis Driver Consulting Provider Notified: Yes When should Consulting Provider be notified: In am Person Notified: Dr. Driver Date Notified: 11/20/16 Time Notified: 08:09 Consult to Physician [CONS] Routine Comment: dizziness/weakness Consulting Provider: Werner Landa When should Consulting Provider be notified: Now Person Notified: Dr. Landa Date Notified: 11/20/16 Time Notified: 08:22 11/19/16 18:11 Consult to Pharmacy [CONS] Routine Reason for Pharmacy Consult: Adjust Meds Renal Funct 11/21/16 18:18 Consult to Physician [CONS] Routine Comment: For evaluation and treatment of vestibular dysfunc Consulting Provider: Franko Barrera 11/22/16 13:43 Consult to Physical Therapy [CONS] Routine Reason for Physical Therapy: Weakness Discharging clinician: Meenakshi Hlal MD
[2016-11-23 11:49] VITALS: BP 130/73
[2016-11-23] MEDS: traMADol 50 MG TABLET PO PRN (12:00)
== END 2016-11-23 13:48 | disposition swing bed (61) | DRG 149 ==
LOC: N.ED 11:41 → N.EDINP 14:43 → SUATTDRO 14:43 → N.2E 15:19
PROVIDERS: ADMIT Internal Medicine; ATTEND Pediatrics

== ENCOUNTER 2017-03-18 21:39 | Inpatient (IN) ==
[2017-03-18 23:44] LABS: Basophils # 0.1 10*3/uL (0.0-0.2); Basophils % 0.3 % (0.0-0.8); Hematocrit 36.1 VOL% (35.7-47.0); Hemoglobin 12.9 GM/DL (12.0-16.0); Immature Granulocytes % 5.8 %; Immature Granulocytes Absolute 0.93 #; Lymphocytes # 0.9 10*3/uL (1.4-4.0); Lymphocytes % 5.5 % (21.3-54.2); Mean Corpuscular HGB Conc 35.7 GM/DL (32-36); Mean Corpuscular Hemoglobin 33 PG (27-34); Mean Corpuscular Volume 92.1 FL (87-102); Neutrophils # 13.2 10*3/uL (1.4-7.4); Neutrophils % 82.4 % (38.7-73.9); Platelet Count 307 T/CUMM (130-400); Red Blood Count 3.92 MC/CUMM (3.8-5.5); Red Cell Distribution Width 14.5 % (9.3-17.3)
[2017-03-19 00:07] LABS: Albumin 3.3 G/DL (3.4-5.0); Bilirubin,Total 0.7 MG/DL (0.2-1.0); Calcium 8.7 MG/DL (8.5-10.1); Osmolality,Calculated 284.9 MOS/KG (273-304); Potassium 4.4 MMOL/L (3.5-5.1); Total Protein 6.4 G/DL (6.4-8.3)
--- NOTE | 2017-03-19 00:10 | Emergency Department Note ---
Arrival - Arrival Chief Complaint: Fall ED Nursing Triage Note: Pt arrives via ems with complaints of falling and hitting head at snf. Pt was found on floor by staff and sent for evaluation. PT complains of pain to left side of her head. Denies any neck back or other pain at time of triage. PT has history of brain tumor removal and implanted device on right side of her head. Pt is very hard of hearing and is noted to have hearing aide in left ear at time of triage. Mode of Arrival: Stretcher Time Seen by Provider: 03/18/17 22:58 - History of Present Illness HPI Narrative: This is a 66-year-old white female who presents from a snf after being found on the floor planning of left-sided head pain. She is been in a snf for the past 6 months because of a progressively worsening neurologic condition of unclear etiology. She has been evaluated by neurology and has had a CT scan of the brain and an MRI scan of the brain which shows no explanation for the patient's deterioration in mental status and ability to walk. Up until approximately 8 months ago the patient was living independently and balancing her checkbook. However because of increasing falling and deteriorating mental capacity the patient has been placed in a snf. She is fallen twice in the past week. She had a large right-sided meningioma removed in 2005 but had been living independently and ambulatory for 10 years after that surgery. Date of Last Menstrual Period: pm Allergies/Adverse Reactions: Allergies Allergy/AdvReac Type Severity Reaction Status Date / Time Sulfa (Sulfonamide Allergy RASH Verified 11/19/16 11:50 Antibiotics) promethazine [From Phenergan] AdvReac Confusion Verified 11/19/16 11:50 Home Medications: Home Medications Medication Instructions Recorded Confirmed Type Dexlansoprazole [Dexilant] 60 mg PO DAILY 11/24/14 03/18/17 History Fluticasone 50 Mcg Nasal [place] 2 spray BOTH NARES DAILY 11/24/14 03/18/17 History [Flonase Nasal [place]] Alendronate [Fosamax] 70 mg PO MO 11/15/16 03/18/17 History Escitalopram [Lexapro] 10 mg PO DAILY 11/15/16 03/18/17 History Metoprolol Succinate Xl [Toprol Xl] 50 mg PO BEDTIME tablet 11/23/16 03/18/17 Rx traMADol TAB [Ultram] 12.5 mg PO Q8H PRN #10 tablet 11/23/16 03/18/17 Rx amLODIPine [Norvasc] 2.5 mg PO DAILY tablet 12/01/16 03/18/17 Rx Dexamethasone [Dexamethasone Tab] 2 mg PO BID 01/24/17 03/18/17 History Diazepam Tab [Valium Tab] 0.5 mg PO BID 01/24/17 03/18/17 History Docusate Sodium [Colace] 100 mg PO DAILY 01/24/17 03/18/17 History Levothyroxine Tab [Synthroid Tab] 50 mcg PO DAILY@0700 01/24/17 03/18/17 History Multivitamin [Multivitamins] 1 each PO DAILY 01/24/17 03/18/17 History Saccharomyces Boulardii [Probiotic] 250 mg PO DAILY 01/24/17 03/18/17 History Lidocaine 5% Patch [Lidoderm 5% 1 patch TRANSDERM DAILY #30 patch 03/10/1703/18 Rx Patch] Review of System - Review of System Constitutional: Absent: fever, night sweats Eyes: Absent: redness, vision change Head/Ears/Nose/Throat: Absent: epistaxis, nasal drainage Respiratory: Absent: respiratory distress, wheezing Cardiovascular: Absent: dyspnea on exertion, orthopnea Gastrointestinal: Absent: vomiting, diarrhea Genitourinary female: Absent: dysuria, urgency Musculoskeletal: Absent: joint swelling, lower back pain Skin: Absent: change in color, change in hair/nails Neurological: Absent: numbness, paresthesias Psychiatric: Absent: anxiety, depression Endocrine: Absent: heat intolerance, polydipsia Hematological/Lymphatic: Absent: easy bruising, lymphadenopathy Allergic/Immunologic: Absent: urticaria, itchy eyes Medical,Surgical,& Family Hx - Medical History Cardio: History of: Cardiac Dysrhythmia, Hypertension No history of: Aneurysm, Cerebrovascular Disease Psychological: History of: Anxiety Disorders, Depression No history of: Previous Suicide Attempt Neurology: History of: Seizures, Vertigo, Neurological Problems (status post resection of a brain tumor) HEENT: History of: Ear Problem (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), Eye Problem (right eye blurry since brain surgery in 2016) No history of: Dental Problems, Glaucoma, Oral Cancer, HEENT Problems Endocrine: History of: Dyslipidemia, Thyroid Disorder No history of: Adrenal Disease, Diabetes Mellitus (IDDM), Diabetes Mellitus ( NIDDM), Endocrine Cancer, Endocrine Problems Genitourinary: History of: Bladder Problem (Frequency and urgency), Recurring Urinary Tract Infections Gastrointestinal: History of: GERD, Hemorrhoids (Takes suppositories.) Musculoskeletal: History of: Back/Neck Problems (Lower back), Degenerative Disk Disease, Osteoporosis, Musculoskeletal Problems (King Syndrome) No history of: Amputation Hematology: History of: Anemia Other: History of: Miscellaneous Medical Problems (brain meningioma) - Surgical History Cardiac Surgeries: Patient Denies: Femoral-Popliteal Bypass Graft, Cardiac Catheterization, Cardiac Surgery, Carotid Endarterectomy, Internal Defibrillator, Vascular Access Devices Thoracic Surgeries: Patient denies;: Lobectomy Neurologic Surgeries: Surgical HX of: Neurologic Surgery (brain tumor removal surgery in 2005) HEENT Surgeries: Surgical HX of: Eye Surgery (Cataracts removed 4 years ago) Patient denies: Carotid Endarterectomy, Thyroid Surgery, Tonsilectomy & Adenoidectomy Abdominal Surgeries: Surgical HX of: Abdominal Surgery, Appendectomy, Cholecystectomy, Colonoscopy, EGD Patient denies: Splenectomy Reproductive Surgeries: Surgical HX of;: Gynecologic Surgery, Hysterectomy Patient denies;: Genitourinary Surgery Orthopedic Surgeries: Patient denies;: Orthopedic Surgery - Family History Family History: Reports;: Family Diabetes (Father), Family Heart Disease (Mother ), Family Hypertension (Brother) Denies;: Family Anesthesia Reaction, Family Cancer, Family Psychiatric Problems, Family Stroke - Social History Smoking Status: Never smoker Frequency of Alcohol Use: None Type of Drug Use: None Exam Vital Signs: Vital Signs Temperature 97.8 F 03/18/17 21:39 Pulse Rate 79 03/18/17 22:51 Respiratory Rate 17 03/18/17 22:51 Blood Pressure 124/77 03/18/17 22:51 O2 Sat by Pulse Oximetry 99 03/18/17 22:51 - General Exam limited due to: ALOC - Head Head exam: Present: atraumatic, normocephalic - Eye Eye exam: Present: PERRL, EOMI - ENT ENT exam: Present: normal exam - Neck Neck exam: Present: normal inspection, full ROM - Chest Chest inspection: Present: normal inspection - Respiratory Respiratory exam: Present: normal lung sounds bilaterally - Cardiovascular Cardiovascular exam: Present: regular rate, normal rhythm - Abdominal Exam Abdominal exam: Present: soft, normal bowel sounds - Extremities Exam Extremities exam: Present: normal inspection, full ROM - Back Exam Back exam: Present: normal inspection, full ROM - Neurological Exam Neurological exam: Present: alert, CN II-XII intact - Psychiatric Psychiatric exam: Present: normal affect, normal mood - Skin Skin exam: Present: warm, dry Results - Labs CBC & BMP: 03/18/17 23:23
[2017-03-19] MEDS ORDERED: ZALEPLON 5 MG CAPSULE PO PRN (01:14)
[2017-03-19] MEDS ORDERED: ONDANSETRON 4 MG/2 ML VIAL IV PRN (01:14)
[2017-03-19] MEDS ORDERED: DEXTROSE 50% 25 GM/50 ML SYRINGE IV PRN (01:14)
[2017-03-19] MEDS ORDERED: GLUCAGON 1 MG VIAL IM PRN (01:14)
[2017-03-19] MEDS ORDERED: DOCUSATE SODIUM 100 MG CAPSULE PO PRN (01:14)
--- NOTE | 2017-03-19 01:59 | Hospitalist History & Physical ---
Assessment and Plan - Time spent with patient Time spent with patient: Greater than 30 minutes (1) Diabetes mellitus, new onset Status: Acute Assessment and plan: Admit to hospitalist service. Consult diabetic education Start metformin Hydrate with normal saline Change tube feeds to Glucerna Accu-Cheks every 4 hours with sliding scale insulin coverage Current Visit: Yes (2) History of brain tumor Status: Chronic Current Visit: No (3) Debility Status: Chronic Current Visit: Yes (4) Hypothyroid Status: Chronic Assessment and plan: Increase Synthroid from 50 mcg to 75 mcg daily Current Visit: Yes Qualifiers: Hypothyroidism type: acquired Qualified Code(s): E03.9 - Hypothyroidism, unspecified (5) Hypertension Status: Chronic Current Visit: No Qualifiers: Hypertension type: essential hypertension Qualified Code(s): I10 - Essential (primary) hypertension History of Present Illness Chief complaint: Elevated blood sugar, fall at prison History of present illness: Ms. Suarez is a 66 year old female who presents from [facility] after being found on the floor complaining of left-sided head pain. She is been in a prison for the past 6 months because of a progressively worsening neurologic condition of unclear etiology. She has been evaluated by neurology and has had a CT scan of the brain and an MRI scan of the brain which shows no explanation for the patient's deterioration in mental status and ability to walk. Until approximately 8 months ago, the patient was living independently and balancing her checkbook. However because of increasing falling and deteriorating mental capacity the patient has been placed in a prison. She is fallen twice in the past week. She had a large right- sided meningioma removed in 2005 but had been living independently and ambulatory for 10 years after that surgery. She was hospitalized here approximately 4 months ago and was transferred to [facility] bed for an extended period of time. Since that time she has been residing at [facility]. Today she was found to have an elevated blood sugar 400. This was an incidental finding in the emergency department and the patient has been diagnosed with new onset diabetes. She is being admitted to the hospital for regulation of her blood sugars and corrective measures regarding her electrolytes. The patient is accompanied by her brother who provides most of the history. He reports his sister is deaf in the right ear and wears a hearing aid in the other. This is related to tumor presents causing auditory dysfunction. The patient does not swallow and has a PEG tube which was placed by Dr. Rivero. Her primary care physician is Dr. Kellogg. The patient was unable to provide any history due to her deteriorating mental status and auditory nerve deafness. Home Medications Medication Instructions Recorded Confirmed Type Dexlansoprazole [Dexilant] 60 mg PO DAILY 11/24/14 03/18/17 History Fluticasone 50 Mcg Nasal [place] 2 spray BOTH NARES DAILY 11/24/14 03/18/17 History [Flonase Nasal [place]] Alendronate [Fosamax] 70 mg PO MO 11/15/16 03/18/17 History Escitalopram [Lexapro] 10 mg PO DAILY 11/15/16 03/18/17 History Metoprolol Succinate Xl [Toprol Xl] 50 mg PO BEDTIME tablet 11/23/16 03/18/17 Rx traMADol TAB [Ultram] 12.5 mg PO Q8H PRN #10 tablet 11/23/16 03/18/17 Rx amLODIPine [Norvasc] 2.5 mg PO DAILY tablet 12/01/16 03/18/17 Rx Dexamethasone [Dexamethasone Tab] 2 mg PO BID 01/24/17 03/18/17 History Diazepam Tab [Valium Tab] 0.5 mg PO BID 01/24/17 03/18/17 History Docusate Sodium [Colace] 100 mg PO DAILY 01/24/17 03/18/17 History Levothyroxine Tab [Synthroid Tab] 50 mcg PO DAILY@0700 01/24/17 03/18/17 History Multivitamin [Multivitamins] 1 each PO DAILY 01/24/17 03/18/17 History Saccharomyces Boulardii [Probiotic] 250 mg PO DAILY 01/24/17 03/18/17 History Lidocaine 5% Patch [Lidoderm 5% 1 patch TRANSDERM DAILY #30 patch 03/10/1703/18 Rx Patch] Allergies Allergy/AdvReac Type Severity Reaction Status Date / Time Sulfa (Sulfonamide Allergy RASH Verified 11/19/16 11:50 Antibiotics) promethazine [From Phenergan] AdvReac Confusion Verified 11/19/16 11:50 Medical,Surgical,& Family Hx - Medical History Cardio: History of: Cardiac Dysrhythmia, Hypertension No history of: Aneurysm, Cerebrovascular Disease Psychological: History of: Anxiety Disorders, Depression No history of: Previous Suicide Attempt Neurology: History of: Seizures, Vertigo, Neurological Problems (status post resection of a brain tumor) HEENT: History of: Ear Problem (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), Eye Problem (right eye blurry since brain surgery in 2016) No history of: Dental Problems, Glaucoma, Oral Cancer, HEENT Problems Endocrine: History of: Dyslipidemia, Thyroid Disorder No history of: Adrenal Disease, Diabetes Mellitus (IDDM), Diabetes Mellitus ( NIDDM), Endocrine Cancer, Endocrine Problems Genitourinary: History of: Bladder Problem (Frequency and urgency), Recurring Urinary Tract Infections Gastrointestinal: History of: GERD, Hemorrhoids (Takes suppositories.) Musculoskeletal: History of: Back/Neck Problems (Lower back), Degenerative Disk Disease, Osteoporosis, Musculoskeletal Problems (King Syndrome) No history of: Amputation Hematology: History of: Anemia Other: History of: Miscellaneous Medical Problems (brain meningioma) - Surgical History Cardiac Surgeries: Patient Denies: Femoral-Popliteal Bypass Graft, Cardiac Catheterization, Cardiac Surgery, Carotid Endarterectomy, Internal Defibrillator, Vascular Access Devices Thoracic Surgeries: Patient denies;: Lobectomy Neurologic Surgeries: Surgical HX of: Neurologic Surgery (brain tumor removal surgery in 2005) HEENT Surgeries: Surgical HX of: Eye Surgery (Cataracts removed 4 years ago) Patient denies: Carotid Endarterectomy, Thyroid Surgery, Tonsilectomy & Adenoidectomy Abdominal Surgeries: Surgical HX of: Abdominal Surgery, Appendectomy, Cholecystectomy, Colonoscopy, EGD Patient denies: Splenectomy Reproductive Surgeries: Surgical HX of;: Gynecologic Surgery, Hysterectomy Patient denies;: Genitourinary Surgery Orthopedic Surgeries: Patient denies;: Orthopedic Surgery - Family History Family History: Reports;: Family Diabetes (Father), Family Heart Disease (Mother ), Family Hypertension (Brother) Denies;: Family Anesthesia Reaction, Family Cancer, Family Psychiatric Problems, Family Stroke - Social History Smoking Status: Never smoker Frequency of Alcohol Use: None Type of Drug Use: None Marital Status: Single Lives With:: [facility] Functional capacity: wheelchair bound ROS unobtainable: due to mental status Exam - Constitutional Vitals: Period Temp Pulse Resp BP Sys/[place] Pulse Ox Last 24 Hr 97.8 F-97.8 F 71-81 16-20 123-125/72-95 98-99 Exam: Constitutional System: No distress. No tremulousness. The patient is petite and short stature. She was unable to provide any history. Head: Normocephalic, atraumatic. Ears, Nose and Throat System: No pain or tenderness. No epistaxis or discharge Eyes System: Pupils equal, round, and reactive. Extraocular muscles intact. Neck: Supple, without adenopathy, No jugular venous distention. Respiratory System: Chest clear to auscultation. Cardiovascular System: Heart with regular rate and rhythm. No murmur. GI System: Abdomen soft, nontender. Normo active bowel sounds present. PEG tube in place Musculoskeletal System: limbs with no pedal edema. Full distal pulses. Normal capillary refill. Results - Labs CBC & BMP: 03/18/17 23:23 03/18/17 23:23 Lab Results: I have reviewed the past 24 hour labs
[2017-03-19 02:02] LABS: Band Neutrophils 2 % (0-10); Lymphocytes 4 % (20-55); Metamyelocytes 1 %; Myelocytes 3 %; Segmented Neutrophils 88 % (50-85)
[2017-03-19 02:03] LABS: Platelet Estimate Normal; Total Cells Counted 100
[2017-03-19 02:21] LABS: Calcium 9.1 MG/DL (8.5-10.1); Magnesium 2.1 MG/DL (1.8-2.4); Osmolality,Calculated 280.7 MOS/KG (273-304); Potassium 4.3 MMOL/L (3.5-5.1); Risk Ratio 4.11; VLDL CHOLESTEROL 45.2 MG/DL
[2017-03-19] MEDS: ENOXAPARIN 40 MG/0.4 ML SYRINGE SUBCUT SCH (03:00)
[2017-03-19] MEDS: SODIUM CHLORIDE 0.9% 1,000 ML IV SCH ×5 (03:00→20:39)
[2017-03-19] MEDS: LEVOTHYROXINE 75 MCG TABLET PO SCH (06:28)
--- NOTE | 2017-03-19 08:31 | CT Report ---
CT head/brain wo con Indication: Fall. History of brain tumor. CT BRAIN WITHOUT CONTRAST DLP: 970 mGy*cm. One or more of the following dose reduction techniques was used: Automated exposure control, adjustment of the mA and/or kV according the patient size, or use of iterative reconstruction techniques. Comparison: 03/10/2017. Date of admission: 03/19/2017. Technique: Axial noncontrast CT images of the brain were obtained. Findings: There is a single sulcus within the posterior right parietal lobe that contains a small linear collection of increased density consistent with a tiny subarachnoid hemorrhage. The quantity is minimal but new since previous exam. No acute parenchymal hemorrhage identified. Generalized atrophy, patchy periventricular white matter hypodensity, and encephalomalacia the right temporal lobe with healed overlying craniotomy, and hypertrophic changes of the right temporal bone and bubbly appearing changes of the clivus are stable. No acute fracture shown. Soft tissue swelling left posterior parietal scalp noted. Visualized sinuses are clear. Right mastoid air cells and middle ear space are opacified. Impression: 1. Tiny acute subarachnoid hemorrhage posterior right parietal lobe. 2. Stable appearing postoperative changes of right temporal craniotomy with right temporal lobe encephalomalacia, and generalized atrophy with chronic small vessel ischemic change. 3. Opacification of the right mastoid air cells. 4. Continued hypertrophic changes of the right temporal bone with a bubbly appearance to the clivus are stable. Is there history of fibrous dysplasia? PROCEDURE INTERPRETED AT [facility] DEPARTMENT OF RADIOLOGY Final Report Signed by: Miguel Hernández M.D.
--- NOTE | 2017-03-19 08:33 | CT Report ---
CT cervical spine wo con Indication: Fall. Head trauma. CT CERVICAL SPINE WITHOUT CONTRAST DLP: 242 mGy*cm. One or more of the following dose reduction techniques was used: Automated exposure control, adjustment of the mA and/or kV according the patient size, or use of iterative reconstruction techniques. Comparison: 11/22/2015 Technique: Axial noncontrast CT images of the cervical spine were obtained. Coronal and sagittal reconstructions were provided. Findings: Osteopenia noted. Bridging endplate osteophytes from C3 through C6 are present with small C6-7 endplate osteophyte development. Disc space narrowing C3-4, C4-5, C5-6 and C6-7 is [id number]. No acute compression fractures. Posterior elements are intact. Alignment is normal. No bony encroachment on the canal. No bony narrowing of the intervertebral foramina. No paraspinous hematoma. Impression: Diffuse degenerative disc disease and osteoporosis. No acute bony injury. PROCEDURE INTERPRETED AT [facility] DEPARTMENT OF RADIOLOGY Final Report Signed by: Miguel Hernández M.D.
[2017-03-19] MEDS ORDERED: PANTOPRAZOLE 40 MG TABLET PO SCH (09:00)
[2017-03-19] MEDS: INSULIN LISPRO 100 UNIT/ML SUBCUT SCH ×4 (09:34→21:04)
[2017-03-19] MEDS: LACTOBACILLUS ACIDOPHILUS/BULGARICUS CAPLET PO SCH (09:36)
[2017-03-19] MEDS: DOCUSATE SODIUM 100 MG CAPSULE PO SCH (09:36)
[2017-03-19] MEDS: metFORMIN 500 MG TABLET PO SCH ×2 (09:36→17:19)
[2017-03-19] MEDS: MULTIVITAMIN (CENTRUM) TABLET PO SCH (09:36)
[2017-03-19] MEDS: amLODIPine 2.5 MG TABLET PO SCH (09:36)
[2017-03-19] MEDS: ESCITALOPRAM 10 MG TABLET PO SCH (09:36)
[2017-03-19] MEDS: PANTOPRAZOLE 40 MG TABLET PO SCH (09:36)
[2017-03-19] MEDS: FLUTICASONE 50 MCG NASAL SPRAY 16 GM BOTTLE BOTH NARES SCH (09:36)
[2017-03-19] MEDS: LIDOCAINE 5% PATCH TRANSDERM SCH (09:59)
--- NOTE | 2017-03-19 11:46 | Magnetic Resonance Report ---
MR head/brain wo con Indication: Small subarachnoid hemorrhage after fall. MRI BRAIN WITHOUT CONTRAST Technique: Multiplanar noncontrast MR images of the brain were obtained. Comparison: 11/21/2016 Findings: No restricted diffusion. Motion artifact is significant. No mass or mass effect. Generalized atrophy and encephalomalacia the right temporal lobe are stable. Postoperative changes right craniotomy again shown. There is small linear area of signal dropout on gradient echo imaging along the posterior right parietal sulcus at the site of the CT findings confirms tiny focus of subarachnoid hemorrhage. No other blood is identified. Orbits are symmetric. Visualized sinuses are clear. Impression: 1. Confirmation of tiny focus of subarachnoid hemorrhage posterior right parietal sulcus. 2. Otherwise no change with generalized atrophy, chronic encephalomalacia right temporal lobe and right temporal craniotomy. Significant motion artifact inhibits more detailed evaluation. PROCEDURE INTERPRETED AT [facility] DEPARTMENT OF RADIOLOGY Final Report Signed by: Miguel Hernández M.D.
--- NOTE | 2017-03-19 11:54 | Event Note ---
Pt gone for MRI
--- NOTE | 2017-03-19 17:12 | Neurology Consult Note ---
History of Present Illness History of present illness: Ms. Suarez is a 66 year old female who presents from [facility] after being found on the floor complaining of left-sided head pain. She is been in a correction for the past 6 months because of a progressively worsening neurologic condition of unclear etiology. She has been evaluated by neurology and has had a CT scan of the brain and an MRI scan of the brain which shows no explanation for the patient's deterioration in mental status and ability to walk. Until approximately 8 months ago, the patient was living independently and balancing her checkbook. However because of increasing falling and deteriorating mental capacity the patient has been placed in a correction. She is fallen twice in the past week. She had a large right- sided meningioma removed in 2005 but had been living independently and ambulatory for 10 years after that surgery. She was hospitalized here approximately 4 months ago and was transferred to [facility] bed for an extended period of time. Since that time she has been residing at [facility]. The day of admission she was found to have an elevated blood sugar 400. This was an incidental finding in the emergency department and the patient has been diagnosed with new onset diabetes. The patient does not swallow and has a PEG tube which was placed by Dr. Rivero. Her primary care physician is Dr. Kellogg. The patient was unable to provide any history due to her deteriorating mental status and auditory nerve deafness. MRI of the brain revealed tiny right parietal sulcus subarachnoid hemorrhage. Home Medications Medication Instructions Recorded Confirmed Type Dexlansoprazole [Dexilant] 60 mg PEG DAILY 11/24/14 03/20/17 History Fluticasone 50 Mcg Nasal [place] 2 spray BOTH NARES DAILY 11/24/14 03/18/17 History [Flonase Nasal [place]] Alendronate [Fosamax] 70 mg PEG MO 11/15/16 03/20/17 History Escitalopram [Lexapro] 10 mg PEG DAILY 11/15/16 03/20/17 History Metoprolol Succinate Xl [Toprol Xl] 50 mg PO BEDTIME tablet 11/23/16 03/18/17 Rx amLODIPine [Norvasc] 2.5 mg PO DAILY tablet 12/01/16 03/18/17 Rx Dexamethasone [Dexamethasone Tab] 2 mg PEG BID 01/24/17 03/20/17 History Diazepam Tab [Valium Tab] 2.5 mg PEG BID 01/24/17 03/20/17 History Docusate Sodium [Colace] 100 mg PEG DAILY PRN 01/24/17 03/20/17 History Levothyroxine Tab [Synthroid Tab] 50 mcg PEG DAILY@0700 01/24/17 03/20/17 History Multivitamin [Multivitamins] 1 each PEG DAILY 01/24/17 03/20/17 History Lidocaine 5% Patch [Lidoderm 5% 1 patch TRANSDERM DAILY #30 patch 03/10/1703/18 Rx Patch] Allergies Allergy/AdvReac Type Severity Reaction Status Date / Time Sulfa (Sulfonamide Allergy RASH Verified 11/19/16 11:50 Antibiotics) promethazine [From Phenergan] AdvReac Confusion Verified 11/19/16 11:50 ROS unobtainable: due to mental status Medical,Surgical,& Family Hx - Medical History Cardio: History of: Cardiac Dysrhythmia, Hypertension No history of: Aneurysm, Cerebrovascular Disease Psychological: History of: Anxiety Disorders, Depression No history of: Previous Suicide Attempt Neurology: History of: Seizures, Vertigo, Neurological Problems (status post resection of a brain tumor) HEENT: History of: Ear Problem (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), Eye Problem (right eye blurry since brain surgery in 2016) No history of: Dental Problems, Glaucoma, Oral Cancer, HEENT Problems Endocrine: History of: Diabetes Mellitus (NIDDM), Dyslipidemia, Thyroid Disorder No history of: Adrenal Disease, Diabetes Mellitus (IDDM), Endocrine Cancer, Endocrine Problems Genitourinary: History of: Bladder Problem (Frequency and urgency), Recurring Urinary Tract Infections Gastrointestinal: History of: GERD, Hemorrhoids (Takes suppositories.) Musculoskeletal: History of: Back/Neck Problems (Lower back), Degenerative Disk Disease, Osteoporosis, Musculoskeletal Problems (King Syndrome) No history of: Amputation Hematology: History of: Anemia Other: History of: 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) - Surgical History Cardiac Surgeries: Patient Denies: Femoral-Popliteal Bypass Graft, Cardiac Catheterization, Cardiac Surgery, Carotid Endarterectomy, Internal Defibrillator, Vascular Access Devices Thoracic Surgeries: Patient denies;: Lobectomy Neurologic Surgeries: Surgical HX of: Neurologic Surgery (brain tumor removal surgery in 2005) HEENT Surgeries: Surgical HX of: Eye Surgery (Cataracts removed 4 years ago) Patient denies: Carotid Endarterectomy, Thyroid Surgery, Tonsilectomy & Adenoidectomy Abdominal Surgeries: Surgical HX of: Abdominal Surgery, Appendectomy, Cholecystectomy, Colonoscopy, EGD Patient denies: Splenectomy Reproductive Surgeries: Surgical HX of;: Gynecologic Surgery, Hysterectomy Patient denies;: Genitourinary Surgery Orthopedic Surgeries: Patient denies;: Orthopedic Surgery - Family History Family History: Reports;: Family Diabetes (Father), Family Heart Disease (Mother ), Family Hypertension (Brother) Denies;: Family Anesthesia Reaction, Family Cancer, Family Psychiatric Problems, Family Stroke - Social History Smoking Status: Never smoker Frequency of Alcohol Use: None Type of Drug Use: None Exam - Constitutional Vitals: Period Temp Pulse Resp BP Sys/[place] Pulse Ox Last 24 Hr 97.1 F-97.8 F 69-81 14-20 118-135/59-95 97-99 Exam: GENERAL: Patient is in no acute distress. NECK: Neck is supple. There is no JVD. No carotid bruits present. No thyroid masses. CVS: First and second heart sounds are normal. There is no S3 present. Regular rate and rhythm. RESPIRATORY: Lungs are clear to auscultation without any rales or rhonchi. ABDOMEN: Soft and non-tender. Bowel sounds are present. There is no hepatosplenomegaly. EXT: There is no palpable edema. Peripheral pulses are present. Skin: No rashes Central Nervous system: General: Alert, awake Speech: non-Fluent Comprehension: Intact and normal Facial expressions: Normal Cranial Nerves: CN1/Olfactory: Normal CN II/ Optic: Normal, Visual Paredes unreliable CN III, and : PATRICE & EOMI CN V: Normal & intact CN VII: face is symmetric CNVIII: Normal CN XI/X/XI/XII: Intact and Normal Motor: Bulk and Tone is normal. Strength in the right 3-4/5 Strength in the left 3-4/5 Sensory: Grossly intact for all the modalities of PP, LT and temp sense Reflexes: 1+ and symmetrical Cerebellar function: Normal finger to nose and heel to humphries testing. Toes: Equivocal Gait: Not tested Results - Labs CBC & BMP: 03/20/17 04:30 03/20/17 04:30 Assessment and Plan (1) SAH (subarachnoid hemorrhage) Status: Acute Assessment and plan: This is likely traumatic in nature but r/o aneurysm. CTA carotids and COW Cont current supportive treatment Current Visit: Yes
[2017-03-19] MEDS: METOPROLOL SUCCINATE XL 50 MG TABLET PO SCH (21:13)
[2017-03-20] MEDS: ENOXAPARIN 40 MG/0.4 ML SYRINGE SUBCUT SCH (01:22)
[2017-03-20] MEDS: SODIUM CHLORIDE 0.9% 1,000 ML IV SCH ×3 (04:40→23:24)
[2017-03-20 05:01] LABS: Basophils % 0.2 % (0.0-0.8); Eosinophils % 0.1 % (0.00-10.9); Hemoglobin 10.5 GM/DL (12.0-16.0); Immature Granulocytes % 6.9 %; Immature Granulocytes Absolute 0.63 #; Lymphocytes # 1.4 10*3/uL (1.4-4.0); Lymphocytes % 15.7 % (21.3-54.2); Mean Corpuscular Hemoglobin 33 PG (27-34); Mean Corpuscular Volume 92.9 FL (87-102); Mean Platelet Volume 9.8 FL (9.6-12.0); Monocytes # 0.7 10*3/uL (0.11-0.8); Monocytes % 8.1 % (1.7-12.7); Neutrophils # 6.3 10*3/uL (1.4-7.4); Platelet Count 237 T/CUMM (130-400); Red Blood Count 3.23 MC/CUMM (3.8-5.5); Red Cell Distribution Width 14.6 % (9.3-17.3); White Blood Count 9.1 T/CUMM (4-12)
[2017-03-20 05:27] LABS: Calcium 7.4 MG/DL (8.5-10.1); Magnesium 1.7 MG/DL (1.8-2.4); Osmolality,Calculated 276.7 MOS/KG (273-304); Potassium 3.8 MMOL/L (3.5-5.1)
[2017-03-20 05:41] LABS: Band Neutrophils 5 % (0-10); Eosinophils 1 % (0-10); Giant Platelets Few; Hypochromasia 1+; Lymphocytes 11 % (20-55); Platelet Estimate Adequate; Segmented Neutrophils 76 % (50-85); Total Cells Counted 100
[2017-03-20 05:42] LABS: Microcytosis Slight
[2017-03-20] MEDS: ACETAMINOPHEN 325 MG TABLET PO PRN ×2 (06:01→16:36)
[2017-03-20] MEDS: LEVOTHYROXINE 75 MCG TABLET PO SCH (06:01)
[2017-03-20] MEDS ORDERED: ALENDRONATE 70 MG PO SCH (07:00)
[2017-03-20 08:00] LABS: PT Patient Result 11.1 SECS
[2017-03-20] MEDS: INSULIN LISPRO 100 UNIT/ML SUBCUT SCH ×4 (08:05→22:48)
[2017-03-20] MEDS: DIAZEPAM 5 MG TABLET PEG SCH ×4 (08:09→23:21)
[2017-03-20] MEDS: amLODIPine 2.5 MG TABLET PO SCH (09:37)
[2017-03-20] MEDS: MULTIVITAMIN (CENTRUM) TABLET PO SCH (09:38)
[2017-03-20] MEDS: PANTOPRAZOLE 40 MG TABLET PO SCH (09:38)
[2017-03-20] MEDS: LACTOBACILLUS ACIDOPHILUS/BULGARICUS CAPLET PO SCH (09:38)
[2017-03-20] MEDS: ESCITALOPRAM 10 MG TABLET PO SCH (09:39)
[2017-03-20] MEDS: FLUTICASONE 50 MCG NASAL SPRAY 16 GM BOTTLE BOTH NARES SCH (09:39)
[2017-03-20] MEDS: DOCUSATE SODIUM 100 MG CAPSULE PO SCH (09:44)
[2017-03-20] MEDS: LIDOCAINE 5% PATCH TRANSDERM SCH (09:44)
[2017-03-20] MEDS: metFORMIN 500 MG TABLET PO SCH ×2 (11:16→16:55)
--- NOTE | 2017-03-20 12:55 | Neurology Progress Note ---
Neurology - PN : Subjective Interval history: Patient seems to be doing about the same. No new problems reported. Laying in bed and resting Exam (Progress Note) - Constitutional Vitals: Period Temp Pulse Resp BP Sys/[place] Pulse Ox Last 24 Hr 97.0 F-98.2 F 62-78 18-20 104-123/59-75 93-97 Exam: GENERAL: Patient is in no acute distress. NECK: Neck is supple. There is no JVD. No carotid bruits present. No thyroid masses. CVS: First and second heart sounds are normal. There is no S3 present. Regular rate and rhythm. RESPIRATORY: Lungs are clear to auscultation without any rales or rhonchi. ABDOMEN: Soft and non-tender. Bowel sounds are present. There is no hepatosplenomegaly. EXT: There is no palpable edema. Peripheral pulses are present. Skin: No rashes Central Nervous system: General: Alert, awake Speech: non-Fluent Comprehension: Intact and normal Facial expressions: Normal Cranial Nerves: CN1/Olfactory: Normal CN II/ Optic: Normal, Visual Paredes unreliable CN III, and : PATRICE & EOMI CN V: Normal & intact CN VII: face is symmetric CNVIII: Normal CN XI/X/XI/XII: Intact and Normal Motor: Bulk and Tone is normal. Strength in the right 3-4/5 Strength in the left 3-4/5 Sensory: Grossly intact for all the modalities of PP, LT and temp sense Reflexes: 1+ and symmetrical Cerebellar function: Normal finger to nose and heel to humphries testing. Toes: Equivocal Gait: Not tested Results - Labs CBC & BMP: 03/20/17 04:30 03/20/17 04:30 Assessment and Plan (1) SAH (subarachnoid hemorrhage) Status: Acute Assessment and plan: For CTA today Current Visit: Yes
--- NOTE | 2017-03-20 14:11 | CT Report ---
CT angio neck Indication: Traumatic subarachnoid hemorrhage after a fall. CT ANGIOGRAM CAROTID ARTERIES DLP: 108 mGy*cm. One or more of the following dose reduction techniques was used: Automated exposure control, adjustment of the mA and/or kV according the patient size, or use of iterative reconstruction techniques. Technique: Axial thin cuts CT images were obtained from the aortic arch through the skull base during the arterial phase of contrast injection. 3-D vascular MIPs reconstructions and multiplanar reformats were evaluated. Omnipaque 350, 80 cc given. Comparison: None. Findings: Severity of stenosis based on NASCET criteria. Reference downstream ICA diameters are 4.1 mm in the right hand 3.7 mm on the left. There is some mild atheromatous disease at both ICA origins without measurable stenosis on either side. Both ICA remain widely patent through the skull base. External carotid artery branches are patent as well. The common carotid arteries are widely patent. Both vertebral arteries are widely patent and bilaterally symmetric. Brachiocephalic and both subclavian arteries are widely patent. The aorta is minimally tortuous but otherwise unremarkable. No cervical chain lymphadenopathy. No superior mediastinal lymphadenopathy. Upper airways widely patent. Pulmonary apices are clear. Osteoporosis and degenerative disc disease is present throughout cervical spine. C3-4, C4-5, C5-6 and C6-7 discs are narrowed with robust endplate osteophytes at C4-5 and C5-6. Again noted are expansile cystic changes of the clivus. Impression: No measurable stenosis of either ICA origin with mild atheromatous plaque present. Significant degenerative changes cervical spine. Expansile cystic changes of the clivus, query fibrous dysplasia versus metastatic disease. PROCEDURE INTERPRETED AT [facility] DEPARTMENT OF RADIOLOGY Final Report Signed by: Miguel Hernández M.D.
--- NOTE | 2017-03-20 14:14 | CT Report ---
CT angio head Indication: Small traumatic subarachnoid hemorrhage right parietal lobe. Prior craniotomy. CT ANGIOGRAM HO-CHUNK OF [place] DLP: 242 mGy*cm. One or more of the following dose reduction techniques was used: Automated exposure control, adjustment of the mA and/or kV according the patient size, or use of iterative reconstruction techniques. Technique: Axial thin cut CT images were obtained from the skull base to the vertex during arterial phase of contrast injection. 3-D vascular MIPs reconstructions and multiplanar reformats were evaluated. Omnipaque 350, 80 cc given. Comparison: None. Findings: Transcranial portion of both internal carotid arteries are widely patent. Both carotid termini are grossly unremarkable feeding bilaterally symmetric A1 and M1 segments. The JEFRY and MCA vascular territories further distal are symmetric and appear grossly unremarkable. No aneurysmal disease shown. Both vertebral arteries terminate in the basilar system. Basilar system terminates in bilateral SUPPLY CONTROLLER. No intercranial stenosis, aneurysm or flow termination identified. Cystic changes to the clivus and right temporal bone again demonstrated. Impression: Negative CT angiogram point lay ira of b[place]rand. PROCEDURE INTERPRETED AT [facility] DEPARTMENT OF RADIOLOGY Final Report Signed by: Miguel Hernández M.D.
[2017-03-20] MEDS ORDERED: MAGNESIUM SULF RIDER 4 GM in PREMIX 1 EACH IV PRN (17:02)
[2017-03-20] MEDS ORDERED: MAGNESIUM SULF RIDER 2 GM in PREMIX 1 EACH IV PRN (17:02)
--- NOTE | 2017-03-20 17:05 | Hospitalist Progress Note ---
Assessment and Plan (1) Hypothyroid Status: Chronic Assessment and plan: Synthroid increased to 75 mcg on admission Current Visit: Yes Qualifiers: Hypothyroidism type: acquired Qualified Code(s): E03.9 - Hypothyroidism, unspecified (2) Debility Status: Acute Current Visit: No (3) Diabetes mellitus, new onset Status: Acute Assessment and plan: Controlled with metformin and SSI Current Visit: Yes (4) SAH (subarachnoid hemorrhage) Status: Acute Assessment and plan: Neurology assisting Current Visit: Yes Hospitalist: Subjective Interval history: No acute events overnight. Patient is very hard of hearing, she does answer some questions appropriately. States that she needs her hearing aids. Exam - Constitutional Vitals: Period Temp Pulse Resp BP Sys/[place] Pulse Ox Last 24 Hr 97.0 F-98.2 F 62-85 16-20 104-123/59-74 93-97 General appearance: normal weight - Head Head exam: Present: normocephalic, atraumatic - Eye Eye exam: Present: EOMI Pupils: Present: PATRICE - ENT ENT exam: Present: normal exam - Neck Neck exam: Present: normal inspection - Respiratory Respiratory exam: Present: clear to auscultation bilaterally. Absent: rhonchi, wheezes - Cardiovascular Cardiovascular exam: Present: regular rate and rhythm - GI/Abdominal GI/Abdominal exam: Present: normal bowel sounds, soft. Absent: tenderness - Extremities Exam Extremities exam: Present: normal inspection - Back Exam Back exam: Present: normal inspection - Neurological Exam Neurological exam: Present: alert, oriented X3 - Psychiatric Psychiatric exam: Present: normal affect, normal mood - Skin Skin exam: Present: warm, intact Results - Labs CBC & BMP: 03/20/17 04:30 03/20/17 04:30
[2017-03-20] MEDS: METOPROLOL SUCCINATE XL 50 MG TABLET PO SCH (23:21)
[2017-03-21] MEDS: ACETAMINOPHEN 325 MG TABLET PO PRN ×3 (00:54→16:55)
[2017-03-21] MEDS: LEVOTHYROXINE 75 MCG TABLET PO SCH (06:10)
[2017-03-21 06:24] LABS: Basophils % 0.1 % (0.0-0.8); Eosinophils % 0.1 % (0.00-10.9); Hematocrit 29.6 VOL% (35.7-47.0); Hemoglobin 10.3 GM/DL (12.0-16.0); Immature Granulocytes % 5.9 %; Lymphocytes # 0.8 10*3/uL (1.4-4.0); Lymphocytes % 11.5 % (21.3-54.2); Mean Corpuscular HGB Conc 34.8 GM/DL (32-36); Mean Corpuscular Hemoglobin 32 PG (27-34); Mean Corpuscular Volume 91.9 FL (87-102); Mean Platelet Volume 9.9 FL (9.6-12.0); Monocytes # 0.5 10*3/uL (0.11-0.8); Monocytes % 7.4 % (1.7-12.7); Neutrophils # 5.1 10*3/uL (1.4-7.4); Platelet Count 208 T/CUMM (130-400); Red Blood Count 3.22 MC/CUMM (3.8-5.5); Red Cell Distribution Width 14.9 % (9.3-17.3); White Blood Count 6.8 T/CUMM (4-12)
[2017-03-21 06:51] LABS: Band Neutrophils 4 % (0-10); Hypochromasia 1+; Lymphocytes 12 % (20-55); Platelet Estimate Adequate; Segmented Neutrophils 74 % (50-85); Total Cells Counted 100
[2017-03-21 06:52] LABS: Microcytosis Slight
[2017-03-21 07:03] LABS: Calcium 7.5 MG/DL (8.5-10.1); Magnesium 2.2 MG/DL (1.8-2.4); Phosphorous 2.8 MG/DL (2.5-4.9); Potassium 3.8 MMOL/L (3.5-5.1); Prealbumin 23.4 MG/DL (20-40)
[2017-03-21] MEDS: metFORMIN 500 MG TABLET PO SCH ×2 (09:45→16:47)
[2017-03-21] MEDS: DIAZEPAM 5 MG TABLET PEG SCH ×3 (09:45→23:31)
[2017-03-21] MEDS: ENOXAPARIN 40 MG/0.4 ML SYRINGE SUBCUT SCH (09:45)
[2017-03-21] MEDS: LACTOBACILLUS ACIDOPHILUS/BULGARICUS CAPLET PO SCH (09:45)
[2017-03-21] MEDS: amLODIPine 2.5 MG TABLET PO SCH (09:45)
[2017-03-21] MEDS: INSULIN LISPRO 100 UNIT/ML SUBCUT SCH ×4 (09:46→23:31)
[2017-03-21] MEDS: LIDOCAINE 5% PATCH TRANSDERM SCH (09:46)
[2017-03-21] MEDS: SODIUM CHLORIDE 0.9% 1,000 ML IV SCH ×2 (09:46→18:06)
[2017-03-21] MEDS: MULTIVITAMIN LIQUID (CENTRUM) 60 ML BOTTLE PEG SCH (09:46)
[2017-03-21] MEDS: ESCITALOPRAM 10 MG TABLET PO SCH (09:46)
[2017-03-21] MEDS: PANTOPRAZOLE 40 MG TABLET PO SCH (09:46)
[2017-03-21] MEDS: DOCUSATE SODIUM 100 MG CAPSULE PO SCH (09:46)
[2017-03-21] MEDS: FLUTICASONE 50 MCG NASAL SPRAY 16 GM BOTTLE BOTH NARES SCH (09:47)
[2017-03-21] MEDS ORDERED: ZINC OXIDE PASTE 113 GM TUBE TOP PRN (13:15)
--- NOTE | 2017-03-21 15:23 | Hospitalist Progress Note ---
Assessment and Plan (1) Hypothyroid Status: Chronic Assessment and plan: Synthroid increased to 75 mcg on admission Current Visit: Yes Qualifiers: Hypothyroidism type: acquired Qualified Code(s): E03.9 - Hypothyroidism, unspecified (2) Debility Status: Acute Current Visit: No (3) Diabetes mellitus, new onset Status: Acute Assessment and plan: metformin and SSI Starting NPH 5 BID Current Visit: Yes (4) SAH (subarachnoid hemorrhage) Status: Acute Assessment and plan: Neurology assisting Current Visit: Yes Hospitalist: Subjective Interval history: No acute events overnight. Exam - Constitutional Vitals: Period Temp Pulse Resp BP Sys/[place] Pulse Ox Last 24 Hr 97.3 F-98.4 F 78-85 18-20 97-142/56-74 94-97 General appearance: normal weight - Head Head exam: Present: normocephalic, atraumatic - Eye Eye exam: Present: EOMI Pupils: Present: PATRICE - ENT ENT exam: Present: normal exam - Neck Neck exam: Present: normal inspection - Respiratory Respiratory exam: Present: clear to auscultation bilaterally - Cardiovascular Cardiovascular exam: Present: regular rate and rhythm - GI/Abdominal GI/Abdominal exam: Present: normal bowel sounds, soft. Absent: tenderness, rebound - Extremities Exam Extremities exam: Present: normal inspection - Back Exam Back exam: Present: normal inspection - Neurological Exam Neurological exam: Present: alert, oriented X3 - Psychiatric Psychiatric exam: Present: normal affect, normal mood - Skin Skin exam: Present: warm, intact Results - Labs CBC & BMP: 03/21/17 05:46 03/21/17 05:46
--- NOTE | 2017-03-21 15:59 | Neurology Progress Note ---
Neurology - PN : Subjective Interval history: Patient seems to be doing about the same. No new problems reported. She would wake up and follow simple commands. CTA is negative. Exam (Progress Note) - Constitutional Vitals: Period Temp Pulse Resp BP Sys/[place] Pulse Ox Last 24 Hr 97.3 F-98.4 F 78-84 18-20 97-142/56-74 94-97 Exam: GENERAL: Patient is in no acute distress. NECK: Neck is supple. There is no JVD. No carotid bruits present. No thyroid masses. CVS: First and second heart sounds are normal. There is no S3 present. Regular rate and rhythm. RESPIRATORY: Lungs are clear to auscultation without any rales or rhonchi. ABDOMEN: Soft and non-tender. Bowel sounds are present. There is no hepatosplenomegaly. EXT: There is no palpable edema. Peripheral pulses are present. Skin: No rashes Central Nervous system: General: Alert, awake Speech: non-Fluent Comprehension: Intact and normal Facial expressions: Normal Cranial Nerves: CN1/Olfactory: Normal CN II/ Optic: Normal, Visual Paredes unreliable CN III, and : PATRICE & EOMI CN V: Normal & intact CN VII: face is symmetric CNVIII: Normal CN XI/X/XI/XII: Intact and Normal Motor: Bulk and Tone is normal. Strength in the right 3-4/5 Strength in the left 3-4/5 Sensory: Grossly intact for all the modalities of PP, LT and temp sense Reflexes: 1+ and symmetrical Cerebellar function: Normal finger to nose and heel to humphries testing. Toes: Equivocal Gait: Not tested Results - Labs CBC & BMP: 03/21/17 05:46 03/21/17 05:46 Assessment and Plan (1) SAH (subarachnoid hemorrhage) Status: Acute Assessment and plan: Metabolic encephalopathy and SAH Continue current supportive treatment. No new recommendations from neuro standpoint Current Visit: Yes
[2017-03-21] MEDS: INSULIN NPH 100 UNIT/ML SUBCUT SCH (16:47)
[2017-03-21] MEDS: METOPROLOL SUCCINATE XL 50 MG TABLET PO SCH (23:30)
[2017-03-22] MEDS: SODIUM CHLORIDE 0.9% 1,000 ML IV SCH ×3 (02:13→18:30)
[2017-03-22] MEDS: LEVOTHYROXINE 75 MCG TABLET PO SCH (07:56)
[2017-03-22] MEDS: DIAZEPAM 5 MG TABLET PEG SCH ×2 (08:08→21:40)
[2017-03-22] MEDS: metFORMIN 500 MG TABLET PO SCH ×2 (10:14→17:12)
[2017-03-22] MEDS: LACTOBACILLUS ACIDOPHILUS/BULGARICUS CAPLET PO SCH (10:14)
[2017-03-22] MEDS: ESCITALOPRAM 10 MG TABLET PO SCH (10:14)
[2017-03-22] MEDS: DOCUSATE SODIUM 100 MG CAPSULE PO SCH (10:14)
[2017-03-22] MEDS: INSULIN NPH 100 UNIT/ML SUBCUT SCH ×2 (10:14→15:47)
[2017-03-22] MEDS: INSULIN LISPRO 100 UNIT/ML SUBCUT SCH ×4 (10:14→21:41)
[2017-03-22] MEDS: MULTIVITAMIN LIQUID (CENTRUM) 60 ML BOTTLE PEG SCH (10:14)
[2017-03-22] MEDS: ENOXAPARIN 40 MG/0.4 ML SYRINGE SUBCUT SCH (10:14)
[2017-03-22] MEDS: FLUTICASONE 50 MCG NASAL SPRAY 16 GM BOTTLE BOTH NARES SCH (10:14)
[2017-03-22] MEDS: amLODIPine 2.5 MG TABLET PO SCH (10:15)
[2017-03-22] MEDS: LIDOCAINE 5% PATCH TRANSDERM SCH (10:15)
[2017-03-22] MEDS: PANTOPRAZOLE 40 MG TABLET PO SCH (10:15)
--- NOTE | 2017-03-22 11:32 | Hospitalist Progress Note ---
Assessment and Plan (1) Diabetes mellitus Status: Acute Assessment and plan: She was started yesterday on NPH insulin. Current Visit: Yes Qualifiers: Diabetes mellitus type: type 1 (2) Dizziness Status: Acute Assessment and plan: She has experienced no further such episodes. Current Visit: No (3) Debility Status: Chronic Current Visit: Yes (4) Hypothyroid Status: Chronic Current Visit: Yes Qualifiers: Hypothyroidism type: acquired Qualified Code(s): E03.9 - Hypothyroidism, unspecified (5) SAH (subarachnoid hemorrhage) Status: Acute Assessment and plan: She has a small subarachnoid hemorrhage for which she is being followed by neurology. Current Visit: Yes Hospitalist: Subjective Interval history: Patient appears stable today. She is being followed by neurology for a small subarachnoid hemorrhage. Her diabetic medications required adjustment. She was started yesterday on NPH insulin. Exam - Constitutional Vitals: Period Temp Pulse Resp BP Sys/[place] Pulse Ox Last 24 Hr 96.8 F-98.4 F 81-86 18-24 108-130/61-76 94-95 General appearance: no acute distress - Head Head exam: Present: normal inspection - Neck Neck exam: Present: normal inspection - Respiratory Respiratory exam: Present: clear to auscultation bilaterally - Cardiovascular Cardiovascular exam: Present: regular rate and rhythm - GI/Abdominal GI/Abdominal exam: Present: normal bowel sounds, soft, other (Nontender with no palpable masses or hepatosplenomegaly.) - Extremities Exam Extremities exam: Present: normal inspection - Skin Skin exam: Present: normal color, warm, intact Results - Labs CBC & BMP: 03/21/17 05:46 03/21/17 05:46
[2017-03-22] MEDS: ACETAMINOPHEN 325 MG TABLET PO PRN (11:33)
--- NOTE | 2017-03-22 15:29 | Neurology Progress Note ---
Neurology - PN : Subjective Interval history: Patient seems to be doing fairly well neurologically. No new problems reported. Alert and awake and following commands. Her speech is fluent. Exam (Progress Note) - Constitutional Vitals: Period Temp Pulse Resp BP Sys/[place] Pulse Ox Last 24 Hr 96.8 F-98.4 F 81-86 18-24 108-134/68-78 94-97 Exam: GENERAL: Patient is in no acute distress. NECK: Neck is supple. There is no JVD. No carotid bruits present. No thyroid masses. CVS: First and second heart sounds are normal. There is no S3 present. Regular rate and rhythm. RESPIRATORY: Lungs are clear to auscultation without any rales or rhonchi. ABDOMEN: Soft and non-tender. Bowel sounds are present. There is no hepatosplenomegaly. EXT: There is no palpable edema. Peripheral pulses are present. Skin: No rashes Central Nervous system: General: Alert, awake Speech: non-Fluent Comprehension: Intact and normal Facial expressions: Normal Cranial Nerves: CN1/Olfactory: Normal CN II/ Optic: Normal, Visual Paredes unreliable CN III, and : PATRICE & EOMI CN V: Normal & intact CN VII: face is symmetric CNVIII: Normal CN XI/X/XI/XII: Intact and Normal Motor: Bulk and Tone is normal. Strength in the right 3-4/5 Strength in the left 3-4/5 Sensory: Grossly intact for all the modalities of PP, LT and temp sense Reflexes: 1+ and symmetrical Cerebellar function: Normal finger to nose and heel to humphries testing. Toes: Equivocal Gait: Not tested Results - Labs CBC & BMP: 03/21/17 05:46 03/21/17 05:46 Assessment and Plan (1) SAH (subarachnoid hemorrhage) Status: Acute Assessment and plan: Metabolic encephalopathy and SAH Continue current supportive treatment. No new recommendations from neuro standpoint Okay to go back to retirement when okay with PCP Sign off please call as needed Current Visit: Yes
[2017-03-22] MEDS: METOPROLOL SUCCINATE XL 50 MG TABLET PO SCH (21:41)
[2017-03-23] MEDS: SODIUM CHLORIDE 0.9% 1,000 ML IV SCH (03:00)
[2017-03-23] MEDS: LEVOTHYROXINE 75 MCG TABLET PO SCH (06:01)
[2017-03-23] MEDS: INSULIN LISPRO 100 UNIT/ML SUBCUT SCH (07:55)
[2017-03-23] MEDS: INSULIN NPH 100 UNIT/ML SUBCUT SCH (07:56)
[2017-03-23 08:13] VITALS: BP 135/67
--- NOTE | 2017-03-23 09:30 | Discharge Summary ---
Hospital Course - Hospital Course Hospital Course: Ms. uSarez is a 66 year old female who presents from [facility] after being found on the floor complaining of left-sided head pain. She is been in a care home for the past 6 months because of a progressively worsening neurologic condition of unclear etiology. She has been evaluated by neurology and has had a CT scan of the brain and an MRI scan of the brain which shows no explanation for the patient's deterioration in mental status and ability to walk. Until approximately 8 months ago, the patient was living independently and balancing her checkbook. However because of increasing falling and deteriorating mental capacity the patient has been placed in a care home. She is fallen twice in the past week. She had a large right- sided meningioma removed in 2005 but had been living independently and ambulatory for 10 years after that surgery. She was hospitalized here approximately 4 months ago and was transferred to [facility] bed for an extended period of time. Since that time she has been residing at [facility]. Today she was found to have an elevated blood sugar 400. This was an incidental finding in the emergency department and the patient has been diagnosed with new onset diabetes. She is being admitted to the hospital for regulation of her blood sugars and corrective measures regarding her electrolytes. The patient is accompanied by her brother who provides most of the history. He reports his sister is deaf in the right ear and wears a hearing aid in the other. This is related to tumor presents causing auditory dysfunction. The patient does not swallow and has a PEG tube which was placed by Dr. Rivero. Her primary care physician is Dr. Kellogg. The patient was unable to provide any history due to her deteriorating mental status and auditory nerve deafness She was seen here in consultation by Dr. Coleman of neurology. She underwent evaluation including CT scans and MRI of the head demonstrating no acute abnormalities. She returned to her baseline mental status. At the time of her discharge she appears comfortable. Diagnosis - Discharge Diagnosis (1) Diabetes mellitus Status: Chronic (2) Dizziness Status: Acute (3) Debility Status: Chronic (4) Hypothyroid Status: Chronic (5) SAH (subarachnoid hemorrhage) Status: Acute Discharge Plan - Discharge Data Disposition: Disch/Xfer to Snf Condition at Discharge: Stable Discharge Diet: advance to your usual diet Activity: resume usual activities as tolerated - Discharge Medications New Insulin Glargine,Hum.rec.anlog [Lantus SoloStar] 10 unit SUBCUT BEDTIME #3 ml Levothyroxine Tab [Synthroid Tab] 75 mcg PO DAILY@0700 #30 tablet Multivitamin Liquid (Centrum) [Centrum Liquid] 15 ml PEG DAILY bottle Zinc Oxide 40% Paste [Desitin 40% Paste] 1 applic TOP PRN PRN applic PRN Reason: Diaper Rash metFORMIN [Glucophage] 500 mg PER TUBE BID W/MEALS #60 tablet Continue Fluticasone 50 Mcg Nasal [place] [Flonase Nasal [place]] 2 spray BOTH NARES DAILY Dexlansoprazole [Dexilant] 60 mg PEG DAILY Escitalopram [Lexapro] 10 mg PEG DAILY Metoprolol Succinate Xl [Toprol Xl] 50 mg PO BEDTIME tablet Diazepam Tab [Valium Tab] 2.5 mg PEG BID Dexamethasone [Dexamethasone Tab] 2 mg PEG BID Docusate Sodium [Colace] 100 mg PEG DAILY PRN PRN Reason: Constipation Lidocaine 5% Patch [Lidoderm 5% Patch] 1 patch TRANSDERM DAILY #30 patch Alendronate [Fosamax] 70 mg PEG MO Multivitamin [Multivitamins] 1 each PEG DAILY amLODIPine [Norvasc] 2.5 mg PO DAILY tablet Discontinued Levothyroxine Tab [Synthroid Tab] 50 mcg PEG DAILY@0700 - Follow Up or Referral - Forms/Instructions Exam - Constitutional Vitals: Period Temp Pulse Resp BP Sys/[place]ron[place] Pulse Ox Last 24 Hr 97.3 F-97.9 F 82-85 16-20 123-146/64-81 93-97 Discharge Results Labs on day of discharge: Labs from last 24 hours 03/23/17 03/22/17 03/22/17 07:17 19:38 17:30 POC Glucose 171 H 120 H 131 H 03/22/17 03/22/17 15:25 11:22 POC Glucose 66 L 177 H DS: Provider Date of admission: 03/19/17 01:14 Primary care physician: Marivel Kellogg M.D. Attending physician on admission: Paradise Ramirez MD Consults: 03/19/17 01:15 Consult to Case Mgmt/Social Srvs [CONS] Routine Reason for Case Mgmt/Social Srvs: Discharge Planning Consult to [facility], Educator [CONS] Routine Reason for Law Office Assistant: Diabetes Education Consult to Occupational Therapy [CONS] Routine Reason for Occupational Therapy: Evaluate and Treat Consult to Physical Therapy [CONS] Routine Reason for Physical Therapy: Evaluate and Treat 03/19/17 02:30 Consult to Dietitian [CONS] Routine Reason for Dietitian: TF-Initiate/Manage Consult Comment: Newly diagnosed diabetic on tube feeds 03/19/17 03:07 Consult to Diabetes Center, Educator [CONS] Routine Reason for Law Office Assistant: Diabetes Education 03/19/17 09:32 Consult to Physician [CONS] Routine Comment: ct showed tiny brain bleed Consulting Provider: Werner Coleman Person Notified: dr. coleman Date Notified: 03/19/17 Time Notified: 09:50 03/22/17 11:33 Consult to Case Mgmt/Social Srvs [CONS] Routine Reason for Case Mgmt/Social Srvs: Discharge Planning Consult Comment: probably tomorrow Discharging clinician: Adam Uriostegui
[2017-03-23] MEDS: ENOXAPARIN 40 MG/0.4 ML SYRINGE SUBCUT SCH (09:56)
[2017-03-23] MEDS: FLUTICASONE 50 MCG NASAL SPRAY 16 GM BOTTLE BOTH NARES SCH (09:56)
[2017-03-23] MEDS: MULTIVITAMIN LIQUID (CENTRUM) 60 ML BOTTLE PEG SCH (09:56)
[2017-03-23] MEDS: LACTOBACILLUS ACIDOPHILUS/BULGARICUS CAPLET PO SCH (09:57)
[2017-03-23] MEDS: LIDOCAINE 5% PATCH TRANSDERM SCH (09:57)
[2017-03-23] MEDS: ESCITALOPRAM 10 MG TABLET PO SCH (09:57)
[2017-03-23] MEDS: metFORMIN 500 MG TABLET PO SCH (09:57)
[2017-03-23] MEDS: DOCUSATE SODIUM 100 MG CAPSULE PO SCH (09:57)
[2017-03-23] MEDS: DIAZEPAM 5 MG TABLET PEG SCH (10:02)
[2017-03-23] MEDS: PANTOPRAZOLE 40 MG TABLET PO SCH (10:02)
[2017-03-23] MEDS: amLODIPine 2.5 MG TABLET PO SCH (10:02)
== END 2017-03-23 11:32 | DRG 64 ==
LOC: EDBD → EDUNIT# → N.ED 21:39 → N.EDINP 03-19 01:14 → SUATTDRO 03-19 01:14 → N.2E 03-19 01:45
PROVIDERS: ADMIT Family Medicine

== ENCOUNTER 2017-05-02 01:42 | Inpatient (IN) ==
[2017-05-02] MEDS ORDERED: methylPREDNISolone SOD SUC 125 MG/2 ML VIAL IV STA (02:01)
[2017-05-02] MEDS ORDERED: CLINDAMYCIN INJ 600 MG in PREMIX 1 EACH IV STA (02:01)
[2017-05-02] MEDS ORDERED: SODIUM CHLORIDE 0.9% 500 ML IV STA (02:01)
[2017-05-02] MEDS ORDERED: cefTRIAXone 1,000 MG in SODIUM CHLORIDE 0.9% 100 ML IV STA (02:01)
[2017-05-02] MEDS ORDERED: PIPERACILLIN/TAZOBACTAM 3,375 MG in SODIUM CHLORIDE 0.9% 100 ML IV STA (02:01)
[2017-05-02] MEDS ORDERED: ONDANSETRON 4 MG/2 ML VIAL IV STA (02:01)
[2017-05-02] MEDS ORDERED: FUROSEMIDE 40 MG/4 ML VIAL IV STA (02:18)
--- NOTE | 2017-05-02 02:19 | Emergency Department Note ---
ISymone Emily, am scribing for, and in the presence of, Handy Larsen MD 02: 14. Suzie Jurado Charles R, MD, personally performed the services described in this documentation, ascribed by Joselyn Ashby in my presence, and it is both accurate and complete . Arrival - Arrival Mode of Arrival: Stretcher Limitations: No Limitations Source: Family (son) Time Seen by Provider: 05/02/17 01:56 - History of Present Illness HPI Narrative: Pt is a 66 y/o female who was brought to ED by EMS from assisted for possible aspiration after feeding tonight. Pt is on every 6 hrs bolus through feeding tube. She was given bolus and laid on her back when possible aspiration took place. Pt has had no fever, per records from assisted. Pt was started on Robitussin recently. Son confirmed pt is DNR. Pt sees Dr. Jimenez in assisted but son notes seeing Dr. Kellogg from time to time. 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 Onset (ago): hour(s) Consistency: constant Severity: moderate Severity scale (1-10): 7 Quality: fullness Allergies/Adverse Reactions: Allergies Allergy/AdvReac Type Severity Reaction Status Date / Time Sulfa (Sulfonamide Allergy RASH Verified 05/02/17 02:02 Antibiotics) promethazine [From Phenergan] AdvReac Confusion Verified 05/02/17 02:02 Home Medications: Home Medications Medication Instructions Recorded Confirmed Type Dexlansoprazole [Dexilant] 60 mg PEG DAILY 11/24/14 03/20/17 History Fluticasone 50 Mcg Nasal [place] 2 spray BOTH NARES DAILY 11/24/14 03/18/17 History [Flonase Nasal [place]] Alendronate [Fosamax] 70 mg PEG MO 11/15/16 03/20/17 History Escitalopram [Lexapro] 10 mg PEG DAILY 11/15/16 03/20/17 History Metoprolol Succinate Xl [Toprol Xl] 50 mg PO BEDTIME tablet 11/23/16 03/18/17 Rx amLODIPine [Norvasc] 2.5 mg PO DAILY tablet 12/01/16 03/18/17 Rx Dexamethasone [Dexamethasone Tab] 2 mg PEG BID 01/24/17 03/20/17 History Diazepam Tab [Valium Tab] 2.5 mg PEG BID 01/24/17 03/20/17 History Docusate Sodium [Colace] 100 mg PEG DAILY PRN 01/24/17 03/20/17 History Multivitamin [Multivitamins] 1 each PEG DAILY 01/24/17 03/20/17 History Lidocaine 5% Patch [Lidoderm 5% 1 patch TRANSDERM DAILY #30 patch 03/10/1703/18 Rx Patch] Insulin Glargine,Hum.rec.anlog 10 unit SUBCUT BEDTIME #3 ml 03/23/17 Rx [Lantus SoloStar] Levothyroxine Tab [Synthroid Tab] 75 mcg PO DAILY@0700 #30 tablet 03/23/17 Rx Multivitamin Liquid (Centrum) 15 ml PEG DAILY bottle 03/23/17 Rx [Centrum Liquid] Zinc Oxide Paste [Desitin Paste] 1 applic TOP PRN PRN applic 03/23/17 Rx metFORMIN [Glucophage] 500 mg PER TUBE BID W/MEALS #60 03/23/17 Rx tablet Review of System - Review of System 12 point system: reviewed and no additional remarkable complaints except as stated - Review of System Constitutional: Absent: chills, fever Respiratory: Present: respiratory distress (possible aspiration) Skin: Absent: rash Medical,Surgical,& Family Hx - Medical History Cardio: History of: Cardiac Dysrhythmia, Hypertension No history of: Aneurysm, Cerebrovascular Disease Psychological: History of: Anxiety Disorders, Depression No history of: Previous Suicide Attempt Neurology: History of: Seizures, Vertigo, Neurological Problems (status post resection of a brain tumor) HEENT: History of: Ear Problem (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), Eye Problem (right eye blurry since brain surgery in 2016) No history of: Dental Problems, Glaucoma, Oral Cancer, HEENT Problems Endocrine: History of: Diabetes Mellitus (NIDDM), Dyslipidemia, Thyroid Disorder No history of: Adrenal Disease, Diabetes Mellitus (IDDM), Endocrine Cancer, Endocrine Problems Genitourinary: History of: Bladder Problem (Frequency and urgency), Recurring Urinary Tract Infections Gastrointestinal: History of: GERD, Hemorrhoids (Takes suppositories.) Musculoskeletal: History of: Back/Neck Problems (Lower back), Degenerative Disk Disease, Osteoporosis, Musculoskeletal Problems (King Syndrome) No history of: Amputation Hematology: History of: Anemia Other: History of: 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) - Surgical History Cardiac Surgeries: Patient Denies: Femoral-Popliteal Bypass Graft, Cardiac Catheterization, Cardiac Surgery, Carotid Endarterectomy, Internal Defibrillator, Vascular Access Devices Thoracic Surgeries: Patient denies;: Lobectomy Neurologic Surgeries: Surgical HX of: Neurologic Surgery (brain tumor removal surgery in 2005) HEENT Surgeries: Surgical HX of: Eye Surgery (Cataracts removed 4 years ago) Patient denies: Carotid Endarterectomy, Thyroid Surgery, Tonsilectomy & Adenoidectomy Abdominal Surgeries: Surgical HX of: Abdominal Surgery, Appendectomy, Cholecystectomy, Colonoscopy, EGD Patient denies: Splenectomy Reproductive Surgeries: Surgical HX of;: Gynecologic Surgery, Hysterectomy Patient denies;: Genitourinary Surgery Orthopedic Surgeries: Patient denies;: Orthopedic Surgery - Family History Family History: Reports;: Family Diabetes (Father), Family Heart Disease (Mother ), Family Hypertension (Brother) Denies;: Family Anesthesia Reaction, Family Cancer, Family Psychiatric Problems, Family Stroke - Social History Smoking Status: Never smoker Marital Status: Single Lives With:: assisted Functional capacity: bed bound Exam Vital Signs: Vital Signs Temperature 97.5 F L 05/02/17 01:44 Pulse Rate 131 H 05/02/17 02:26 Respiratory Rate 24 05/02/17 02:26 Blood Pressure 137/85 05/02/17 01:44 O2 Sat by Pulse Oximetry 89 L 05/02/17 02:26 - General General appearance: other (chronically ill) - Head Head exam: Present: atraumatic, normocephalic - ENT ENT exam: Present: mucous membranes moist, other (dry tongue with feeding tube in place). Absent: mucous membranes dry - Chest Chest inspection: Present: symmetric chest wall rise - Respiratory Respiratory exam: Present: accessory muscle use (gruggling sounds with breathing mask in place), rales, respiratory distress (mild to moderate), wheezes (at bases with right worse than left). Absent: normal lung sounds bilaterally - Cardiovascular Cardiovascular exam: Present: regular rate, normal rhythm, normal heart sounds - Neurological Exam Neurological exam: Present: CN II-XII intact - Skin Skin exam: Present: warm, dry Course - Consultations Consultation #1: Hospitalist will admit patient Time: 03:13 Results - Labs CBC & BMP: 05/02/17 02:23 05/02/17 02:23 Lab Results: I have reviewed the patients labs Labs: Laboratory Tests 05/02/17 02:51 ABG pH 7.342 L ABG pCO2 50.0 H ABG pO2 62.8 L ABG O2 Saturation 89.1 L Critical Care Time Critical Care Time: Yes Total Critical Care Time: 60 Disposition Clinical Impression: Debility, Community acquired pneumonia, Congestive heart failure, Aspiration pneumonia, Sepsis, PEG tube feeder, Hypoxia Case discussed with: patient, patient's family Disposition: Still a Patient Condition: Guarded Time of Disposition: 03:13
[2017-05-02] MEDS ORDERED: ALBUTEROL 2.5 MG/3 ML NEB RESP TX SCH (02:30)
[2017-05-02] MEDS ORDERED: ALBUTEROL 2.5 MG/3 ML NEB RESP TX ONE (02:44)
[2017-05-02 02:47] LABS: ABG Base Excess 0.6 MMOL/L (-2.5-2.5); ABG HCO3 24.8 MMOL/L (20-26); ABG Oxygen Saturation 89.1 % (95-100); ABG PH 7.342 (7.35-7.45); ABG PO2 62.8 MM HG (80-95); ABG TCO2 24.2 MMOL/L (23-27)
[2017-05-02 02:48] LABS: INR 1.1; PT Patient Result 11.4 SECS
[2017-05-02 02:53] LABS: Basophils % 0.3 % (0.0-0.8); Hematocrit 35.9 VOL% (35.7-47.0); Hemoglobin 12.2 GM/DL (12.0-16.0); Immature Granulocytes % 1.7 %; Immature Granulocytes Absolute 0.11 #; Lymphocytes # 0.6 10*3/uL (1.4-4.0); Lymphocytes % 8.9 % (21.3-54.2); Mean Corpuscular Hemoglobin 31 PG (27-34); Mean Corpuscular Volume 91.1 FL (87-102); Mean Platelet Volume 9.8 FL (9.6-12.0); Monocytes # 0.1 10*3/uL (0.11-0.8); Monocytes % 1.9 % (1.7-12.7); NRBC # 0.04 10*3/uL; Neutrophils # 5.5 10*3/uL (1.4-7.4); Neutrophils % 87.2 % (38.7-73.9); Platelet Count 366 T/CUMM (130-400); Red Blood Count 3.94 MC/CUMM (3.8-5.5); Red Cell Distribution Width 13.5 % (9.3-17.3); White Blood Count 6.3 T/CUMM (4-12)
[2017-05-02] MEDS ORDERED: SODIUM CHLORIDE 0.9% 100 ML IV ONE (02:57)
[2017-05-02] MEDS ORDERED: cefTRIAXone 1,000 MG VIAL ONE (02:57)
[2017-05-02] MEDS ORDERED: methylPREDNISolone SOD SUC 125 MG/2 ML VIAL ONE (02:57)
[2017-05-02] MEDS ORDERED: PIPERACILLIN/TAZOBACTAM 3,375 MG VIAL IV ONE (02:57)
[2017-05-02] MEDS ORDERED: CLINDAMYCIN INJ 50 ML IV ONE (02:57)
[2017-05-02] MEDS ORDERED: FUROSEMIDE 40 MG/4 ML VIAL ONE (02:57)
[2017-05-02 03:06] LABS: Alanine Aminotransferase 23 U/L (13-56); Albumin 1.8 G/DL (3.4-5.0); Alkaline Phosphatase 109 U/L (45-117); Aspartate Amino Transferase 21 U/L (0-37); Bilirubin,Total < 0.39 MG/DL (0.2-1.0); Blood Urea Nitrogen 52 MG/DL (7-18); Calcium 9.3 MG/DL (8.5-10.1); Glucose 169 MG/DL (74-106); Magnesium 1.9 MG/DL (1.8-2.4); Osmolality,Calculated 287.1 MOS/KG (273-304); Sodium 135 MMOL/L (136-145); Total Protein 6.1 G/DL (6.4-8.3); Troponin I Only < 0.015 NG/ML (0.00-0.045)
[2017-05-02 03:07] LABS: Lactic Acid 5.4 MMOL/L (0.4-2.0)
[2017-05-02 03:33] LABS: Apearance,Urine CLOUDY (Clear); Bilirubin,Urine Negative (Negative); Blood, Urine Negative (Negative); Glucose,Urine (UA) 50 mg/dL (Negative); Ketones,Urine 5 mg/dL (Negative); Nitrite,Urine Negative (Negative); Protein,Urine 30 MG/DL; RBC,Urine 3 /HPF (0-4); Squamous Epithelial Cell,Urine Occasional /HPF (0-10); Urine Specific Gravity 1.024 (1.001-1.035); Urine Urobilinogen < 2.0 EU/DL (0.2-1.0); WBC,Urine 4 /HPF (0-6)
[2017-05-02 03:34] LABS: Urine Color Dark yellow (Yellow)
[2017-05-02] MEDS ORDERED: ONDANSETRON 4 MG/2 ML VIAL IV PRN (04:47)
[2017-05-02 04:51] LABS: Band Neutrophils 47 % (0-10); Giant Platelets Few; Lymphocytes 7 % (20-55); Metamyelocytes 7 %; Myelocytes 2 %; Platelet Estimate Normal; Segmented Neutrophils 35 % (50-85); Smudge Cells Few; Total Cells Counted 100
--- NOTE | 2017-05-02 05:39 | Hospitalist History & Physical ---
Assessment and Plan - Time spent with patient Time spent with patient: Greater than 30 minutes (1) Septic shock Status: Acute Assessment and plan: Admit to hospitalist services. Septic shock criteria: Heart rate 150s, respiratory rate 36, source of infection aspiration pneumonia, acute lung injury, and lactic acid 5.4. NS 500 ml bolus given in ED; continue gentle hydration with NS at 50 ml/hr due to CHF. Rocephin, Clindamycin, and Zosyn given in ED. Continue antibiotic therapy with Rocephin and Clindamycin. O2 per unit protocol. NPO. Consult dietary for PEG tube feeding. Sputum cultures ordered; follow. Repeat lactic acid. Repeat CXR in a.m. Repeat CBC, BMP, BNP, and mag in a.m. Current Visit: Yes (2) Aspiration pneumonia Status: Acute Assessment and plan: As above. Current Visit: Yes (3) Hypoxia Status: Acute Assessment and plan: As above. Current Visit: Yes (4) Diabetes mellitus Status: Chronic Assessment and plan: Dietary consult for PEG tube feedings. No insulin or Metformin ordered until feedings resume. Current Visit: No Qualifiers: Diabetes mellitus type: type 1 (5) Hypertension Status: Chronic Assessment and plan: Stable at this time. Hold home medications; resume as indicated. Current Visit: No Qualifiers: Hypertension type: essential hypertension Qualified Code(s): I10 - Essential (primary) hypertension (6) Hypothyroid Status: Chronic Assessment and plan: Continue home medications through PEG. Current Visit: No Qualifiers: Hypothyroidism type: acquired Qualified Code(s): E03.9 - Hypothyroidism, unspecified (7) DVT prophylaxis Status: Acute Assessment and plan: Lovenox 40 mg SQ daily. Current Visit: Yes History of Present Illness Chief complaint: Aspiration History of present illness: Ms. Suarez is a 66 year old female with a past medical history of hypertension , cardiac dysrhythmia, anxiety, depression, seizures, meningioma status post resection, [id number] diabetes, thyroid disorder, GERD, King syndrome, and anemia who was brought to the ED today following an episode of aspiration at the the care home. All history was taken from her brother who was present at the bedside. He states that the patient used to receive continuous tube feedings, but they were recently changed to bolus feedings. He reports that the care home contacted him around 01:00 today and said the patient had aspirated at some point following a feeding. He reports that the patient has deteriorated significantly over the last 6 months or so, changing from someone who read daily and walked with a walker to someone who can no longer walk, cannot swallow, and does not read. He reports that in 2005 the patient had a resection of a meningioma in which 95% of the tumor was removed. The family feels maybe regrowth of the tumor has caused her sudden decline, though he states recent scans of the brain have shown no appreciable changes. In the ED, Ms. Suarez was tachycardic in the 120s upon presentation and in the 150s during this exam. She was tachypneic with respirations at 36 and hypoxic with O2 sats around 83 on 15L by NRB. WBCs were 6.3, pH 7.342, pCO2 50.0, pO2 62.8, Na 135, K 5, Cl 96, Anion Gap 17, BUN 52, Creatinine 1.1, Glucose 169, Lactic acid 5.4, BNP 194, and Albumin 1.8. Hospitalist services were consulted and the patient will be admitted for further evaluation and treatment. Home medications were not updated for reconciliation at this time. The patient's brother wishes for the patient to be on comfort measures, but to receive antibiotic treatment in case she can recover. She is a DNR. Home Medications Medication Instructions Recorded Confirmed Type Dexlansoprazole [Dexilant] 60 mg PEG DAILY 11/24/14 05/02/17 History Fluticasone 50 Mcg Nasal [place] 2 spray BOTH NARES DAILY 11/24/14 05/02/17 History [Flonase Nasal [place]] Alendronate [Fosamax] 70 mg PEG MO 11/15/16 05/02/17 History Escitalopram [Lexapro] 10 mg PEG DAILY 11/15/16 05/02/17 History Metoprolol Succinate Xl [Toprol Xl] 50 mg PO BEDTIME tablet 11/23/16 05/02/17 Rx amLODIPine [Norvasc] 2.5 mg PO DAILY tablet 12/01/16 05/02/17 Rx Dexamethasone [Dexamethasone Tab] 2 mg PEG BID 01/24/17 05/02/17 History Diazepam Tab [Valium Tab] 2.5 mg PEG BID 01/24/17 05/02/17 History Lidocaine 5% Patch [Lidoderm 5% 1 patch TRANSDERM DAILY #30 patch 03/10/1705/02 Rx Patch] Insulin Glargine,Hum.rec.anlog 10 unit SUBCUT BEDTIME #3 ml 03/23/17 05/02/17 Rx [Lantus SoloStar] Levothyroxine Tab [Synthroid Tab] 75 mcg PO DAILY@0700 #30 tablet 03/23/1705/02 Rx Multivitamin Liquid (Centrum) 15 ml PEG DAILY bottle 03/23/17 05/02/17 Rx [Centrum Liquid] metFORMIN [Glucophage] 500 mg PER TUBE BID W/MEALS #60 03/23/17 05/02/17 Rx tablet Allergies Allergy/AdvReac Type Severity Reaction Status Date / Time Sulfa (Sulfonamide Allergy RASH Verified 05/02/17 02:02 Antibiotics) promethazine [From Phenergan] AdvReac Confusion Verified 05/02/17 02:02 Medical,Surgical,& Family Hx - Medical History Cardio: History of: Cardiac Dysrhythmia, Hypertension Psychological: History of: Anxiety Disorders, Depression Neurology: History of: Seizures, Vertigo, Neurological Problems (status post resection of a brain tumor) HEENT: History of: Ear Problem (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), Eye Problem (right eye blurry since brain surgery in 2015) Endocrine: History of: Diabetes Mellitus (NIDDM), Dyslipidemia, Thyroid Disorder Genitourinary: History of: Bladder Problem (Frequency and urgency), Recurring Urinary Tract Infections Gastrointestinal: History of: GERD, Hemorrhoids (Takes suppositories.) Musculoskeletal: History of: Back/Neck Problems (Lower back), Degenerative Disk Disease, Osteoporosis, Musculoskeletal Problems (King Syndrome) Hematology: History of: Anemia Other: History of: 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) - Surgical History Neurologic Surgeries: Surgical HX of: Neurologic Surgery (brain tumor removal surgery in 2005) HEENT Surgeries: Surgical HX of: Eye Surgery (Cataracts removed 4 years ago) Abdominal Surgeries: Surgical HX of: Abdominal Surgery, Appendectomy, Cholecystectomy, Colonoscopy, EGD Reproductive Surgeries: Surgical HX of;: Gynecologic Surgery, Hysterectomy - Family History Family History: Reports;: Family Diabetes (Father), Family Heart Disease (Mother ), Family Hypertension (Brother) - Social History Smoking Status: Never smoker Have you smoked in the last 12 months: No Frequency of Alcohol Use: None Type of Drug Use: None Marital Status: Lives With:: group home Functional capacity: wheelchair bound ROS unobtainable: due to mental status Exam - Constitutional Vitals: Period Temp Pulse Resp BP Sys/[place] Pulse Ox Last 24 Hr 97.5 F-97.5 F 128-158 18-36 88-137/69-85 83-90 Exam: Constitutional System: Afebrile. Opens eyes with verbal stimulation. [Severe] distress. [No] tremulousness. Head: Normocephalic, atraumatic. Ears, Nose and Throat System: No epistaxis or discharge Eyes System: Pupils equal, round, and reactive. Extraocular muscles intact. Neck: Supple, without adenopathy, [No] jugular venous distention. No thyromegaly or neck mass. Scar from thyroid surgery apparent. Respiratory System: Rhonchi noted. Cardiovascular System: Heart with [tachycardic] rate and rhythm. [No] murmur. GI System: Abdomen [soft]. [Normo]active bowel sounds present. Musculoskeletal System: Limbs with [no] pedal edema. [Full] distal pulses. Normal capillary refill. Neurological System: Opens eyes only. Does not verbally respond. Psychiatric System: Opens eyes only. Does not verbally respond. Results - Labs CBC & BMP: 05/02/17 02:23 05/02/17 02:23 Lab Results: I have reviewed the past 24 hour labs - Diagnostic Findings Procedure: Chest x-ray: report reviewed by me Sepsis - Sepsis Classification of Sepsis: Septic Shock Sepsis documentation within 6 hours of presentation: fluid change - Physical Exam Respiratory exam: rales, rhonchi, wheezes Capillary Refill: Less Than 3 Seconds Peripheral pulses: Radial (L): 5+, Radial (R): 5+, Dorsalis Pedis (L) PM: 5+, Dorsalis Pedis (R) PM: 5+, Posterior Tibialis (L): 5+, Posterior Tibialis (R): 5 + Cardiovascular exam: tachycardia Skin exam: normal color
--- NOTE | 2017-05-02 07:02 | XRay Report ---
XR chest 1V portable Indication: Shortness of breath Comparison: 11 April 2017 Findings: The heart and mediastinum are normal in size and configuration. The pulmonary vascularity is normal in caliber. There is increased lower lung densities bilaterally. No other lung infiltrates, effusions, pneumothorax or other abnormality is demonstrated. Impression: Increased lower lung density, could indicate infiltrate or atelectasis. PROCEDURE INTERPRETED AT [facility] DEPARTMENT OF RADIOLOGY Final Report Signed by: Dr. Nicolás Mccabe
[2017-05-02 07:10] LABS: Basophils % 1.5 % (0.0-0.8); Hematocrit 36.8 VOL% (35.7-47.0); Hemoglobin 12.2 GM/DL (12.0-16.0); Immature Granulocytes % 1.9 %; Immature Granulocytes Absolute 0.05 #; Lymphocytes # 0.3 10*3/uL (1.4-4.0); Lymphocytes % 11.8 % (21.3-54.2); Mean Corpuscular HGB Conc 33.2 GM/DL (32-36); Mean Corpuscular Hemoglobin 31 PG (27-34); Mean Corpuscular Volume 92.2 FL (87-102); Mean Platelet Volume 10.1 FL (9.6-12.0); Monocytes # 0.1 10*3/uL (0.11-0.8); Monocytes % 3.4 % (1.7-12.7); NRBC # 0.06 10*3/uL; Neutrophils # 2.1 10*3/uL (1.4-7.4); Neutrophils % 81.4 % (38.7-73.9); Platelet Count 369 T/CUMM (130-400); Red Blood Count 3.99 MC/CUMM (3.8-5.5); Red Cell Distribution Width 13.6 % (9.3-17.3); White Blood Count 2.6 T/CUMM (4-12)
[2017-05-02] MEDS: SODIUM CHLORIDE 0.9% 1,000 ML IV SCH (07:21)
[2017-05-02 07:38] LABS: Band Neutrophils 20 % (0-10); Giant Platelets Few; Lymphocytes 15 % (20-55); Myelocytes 4 %; Nucleated Red Blood Cells 1 (0-5); Platelet Estimate Adequate; Segmented Neutrophils 57 % (50-85); Total Cells Counted 100
[2017-05-02 07:39] LABS: Microcytosis Slight
[2017-05-02] MEDS: LEVOTHYROXINE 75 MCG TABLET PO SCH (07:40)
[2017-05-02 07:47] LABS: Albumin 1.8 G/DL (3.4-5.0); Bilirubin,Total 0.4 MG/DL (0.2-1.0); Calcium 9.2 MG/DL (8.5-10.1); Osmolality,Calculated 294.8 MOS/KG (273-304); Potassium 5.1 MMOL/L (3.5-5.1); Total Protein 5.2 G/DL (6.4-8.3)
[2017-05-02] MEDS: MULTIVITAMIN LIQUID (CENTRUM) 60 ML BOTTLE PEG SCH ×2 (08:13→08:51)
[2017-05-02] MEDS: DEXAMETHASONE 4 MG TABLET PEG SCH ×2 (08:51→23:23)
[2017-05-02] MEDS: ENOXAPARIN 40 MG/0.4 ML SYRINGE SUBCUT SCH (08:52)
[2017-05-02] MEDS: LANSOPRAZOLE ODT 30 MG TABLET PEG SCH (08:52)
[2017-05-02] MEDS: CLINDAMYCIN INJ 600 MG in PREMIX 1 EACH IV SCH ×3 (09:03→23:23)
[2017-05-03] MEDS: CLINDAMYCIN INJ 600 MG in PREMIX 1 EACH IV SCH ×4 (04:29→22:23)
[2017-05-03] MEDS: SODIUM CHLORIDE 0.9% 1,000 ML IV SCH (04:30)
[2017-05-03 06:35] LABS: Hematocrit 28.2 VOL% (35.7-47.0); Immature Granulocytes % 1.8 %; Immature Granulocytes Absolute 0.15 #; Lymphocytes # 0.2 10*3/uL (1.4-4.0); Lymphocytes % 2.2 % (21.3-54.2); Mean Corpuscular Hemoglobin 31 PG (27-34); Mean Platelet Volume 10.4 FL (9.6-12.0); Monocytes # 0.1 10*3/uL (0.11-0.8); Monocytes % 1.6 % (1.7-12.7); NRBC # 0.02 10*3/uL; Neutrophils # 8.1 10*3/uL (1.4-7.4); Neutrophils % 94.4 % (38.7-73.9); Red Cell Distribution Width 13.8 % (9.3-17.3)
[2017-05-03 06:38] LABS: Hemoglobin 9.6 GM/DL (12.0-16.0); White Blood Count 8.5 T/CUMM (4-12)
[2017-05-03 06:39] LABS: Platelet Count 189 T/CUMM (130-400)
[2017-05-03 06:45] LABS: Band Neutrophils 14 % (0-10); Giant Platelets Few; Hypochromasia 1+; Lymphocytes 3 % (20-55); Myelocytes 2 %; Platelet Estimate Normal; Segmented Neutrophils 79 % (50-85); Total Cells Counted 100
[2017-05-03 06:46] LABS: Microcytosis Slight
[2017-05-03 06:54] LABS: Calcium 8.3 MG/DL (8.5-10.1); Magnesium 2.1 MG/DL (1.8-2.4); Osmolality,Calculated 297.3 MOS/KG (273-304); Potassium 3.7 MMOL/L (3.5-5.1)
[2017-05-03 06:58] LABS: Phosphorous 6.2 MG/DL (2.5-4.9); Prealbumin 8.6 MG/DL (20-40)
--- NOTE | 2017-05-03 07:40 | XRay Report ---
XR chest 1V portable Indication: Shortness of breath Comparison: 02 May 2017 Findings: The heart and mediastinum are stable in size and configuration. The pulmonary vascularity is increased. There is patchy of bilateral pulmonary density right greater than left similar to previous exam. There is suggestion of small effusion on the right. No other lung infiltrates, effusions, pneumothorax or other abnormality is demonstrated. Impression: No significant change. PROCEDURE INTERPRETED AT [facility] DEPARTMENT OF RADIOLOGY Final Report Signed by: Dr. Nicolás Mccabe
[2017-05-03] MEDS: LANSOPRAZOLE ODT 30 MG TABLET PEG SCH (09:48)
[2017-05-03] MEDS: ENOXAPARIN 40 MG/0.4 ML SYRINGE SUBCUT SCH (09:48)
[2017-05-03] MEDS: LEVOTHYROXINE 75 MCG TABLET PO SCH (09:48)
[2017-05-03] MEDS: DEXAMETHASONE 4 MG TABLET PEG SCH ×2 (09:48→22:10)
[2017-05-03] MEDS: MULTIVITAMIN LIQUID (CENTRUM) 60 ML BOTTLE PEG SCH (09:59)
[2017-05-03] MEDS: ZINC OXIDE PASTE 113 GM TUBE TOP SCH ×2 (10:58→22:12)
--- NOTE | 2017-05-03 11:40 | Hospitalist Progress Note ---
Assessment and Plan (1) Anemia Status: Acute Assessment and plan: The patient's hemoglobin has fallen precipitously in the last 24 hours. This is likely a consequence of IV hydration as well as blood loss. We will continue to observe and provide comfort care. Will recheck electrolytes and CBC tomorrow morning. The patient's goal of care is being met at present. Current Visit: No (2) Gastroparesis Status: Acute Current Visit: No (3) Aspiration pneumonia Status: Acute Current Visit: Yes Hospitalist: Subjective Interval history: Ms. Suarez is resting quietly. She is not having any choking symptoms at this time. Her breathing is nonlabored. Exam - Constitutional Vitals: Period Temp Pulse Resp BP Sys/[place] Pulse Ox Last 24 Hr 98.4 F-99.5 F 120-138 17-32 93-125/67-77 93-99 General appearance: mild distress - Respiratory Respiratory exam: Present: prolonged expiratory phase - Cardiovascular Cardiovascular exam: Present: regular rate and rhythm - GI/Abdominal GI/Abdominal exam: Present: normal bowel sounds Results - Labs CBC & BMP: 05/03/17 04:57 05/03/17 04:57 Lab Results: I have reviewed the past 24 hour labs
--- NOTE | 2017-05-03 21:29 | Order Completion Report ---
See report scanned to EMR
[2017-05-03] MEDS: ACETAMINOPHEN 325 MG/10.15 ML UDCUP PER TUBE PRN (22:11)
[2017-05-03] MEDS: MORPHINE 2 MG/1 ML SYRINGE IV PRN (22:13)
[2017-05-04] MEDS: ACETAMINOPHEN 325 MG/10.15 ML UDCUP PER TUBE PRN (04:27)
[2017-05-04] MEDS: CLINDAMYCIN INJ 600 MG in PREMIX 1 EACH IV SCH ×3 (05:13→16:33)
[2017-05-04] MEDS: ZINC OXIDE PASTE 113 GM TUBE TOP SCH ×2 (08:36→22:58)
[2017-05-04] MEDS: MULTIVITAMIN LIQUID (CENTRUM) 60 ML BOTTLE PEG SCH (08:38)
[2017-05-04] MEDS: DEXAMETHASONE 4 MG TABLET PEG SCH ×2 (08:38→22:58)
[2017-05-04] MEDS: LEVOTHYROXINE 75 MCG TABLET PO SCH (08:38)
[2017-05-04] MEDS: LANSOPRAZOLE ODT 30 MG TABLET PEG SCH (08:38)
[2017-05-04] MEDS: ENOXAPARIN 40 MG/0.4 ML SYRINGE SUBCUT SCH (08:38)
--- NOTE | 2017-05-04 08:47 | XRay Report ---
XR chest 1V portable Indication: Shortness of breath Comparison: 03 May 2017 Findings: The heart and mediastinum are stable in size and configuration. The pulmonary vascularity is normal in caliber. Mild bilateral lower lung densities are slightly improved. No other lung infiltrates, effusions, pneumothorax or other abnormality is demonstrated. Impression: Slight improvement in pulmonary densities when compared to previous exam. No other significant changes. PROCEDURE INTERPRETED AT [facility] DEPARTMENT OF RADIOLOGY Final Report Signed by: Dr. Nicolás Mccabe
[2017-05-04] MEDS: SODIUM CHLORIDE 0.9% 1,000 ML IV SCH ×2 (08:52→18:07)
--- NOTE | 2017-05-04 09:26 | Physician Query Form ---
CLICK EDIT DOCUMENT TO SELECT QUERY ANSWER --> OK --> SIGN Adelita Sheppard RN Clinical Information Systems Planner W) [phone] (f) [phone] [email or web address] PROVIDERS: Make your selection(s) from the choices in EACH section by typing an "x" and enter comments in the comment section. Please use your independent medical judgment in providing your response. This request does not imply that any particular answer is desired or expected. CLINICAL INDICATORS: (Providers should not edit this section) Based on lab results of creatinine on admission of 1.30 with a GFR of 41 and decreased to 1.00. Pt. treated with IV fluids of Normal Saline. Clarify which of the following most accurately represents the patient's renal status: (X ) Acute kidney injury (non-traumatic) ( ) Acute renal failure ( ) Acute renal failure with underlying Chronic Kidney Disease (CKD) - please provide stage below ( ) CKD - please provide stage below ( ) Other, please specify: ( ) Clinically unable to determine Chronic Kidney Disease Stages Source: National Kid[employer] Foundation ( ) Stage I (eGFR > or = 90) ( ) Stage II (eGFR 60 - 89) ( ) Stage III (eGFR 30 - 59) ( ) Stage IV (eGFR 15 - 29) ( ) Stage V (eGFR < 15 or dialysis) COMMENTS: PLEASE ALSO DOCUMENT RESPONSE IN PROGRESS NOTES AND/OR DISCHARGE SUMMARY Use of terms such as suspected, likely, or probable (associated with a specific diagnosis that is being evaluated, monitored, or treated as if it exists) are acceptable and can be restated in the discharge summary if not ruled out. MTDD
--- NOTE | 2017-05-04 12:28 | Hospitalist Progress Note ---
<Charito Weiss - Last Filed: 05/04/17 12:26> Assessment and Plan (1) Aspiration pneumonia Status: Acute Current Visit: Yes (2) Do not resuscitate Status: Acute Assessment and plan: Spoke with family present at bedside in great detail. Family verbalized concerns regarding the difference between comfort measures and a do not resuscitation order. I explained the differences between comfort measures and DO NOT RESUSCITATE. The family then requested that the patient be made a full DO NOT RESUSCITATE. Current Visit: Yes (3) Anemia Status: Acute Current Visit: No Hospitalist: Subjective Interval history: Patient seen and examined; chart reviewed. Patient on nonrebreather mask at the time of examination; withdraws from pain only. Family present at bedside; status report given. Exam - Constitutional Vitals: Period Temp Pulse Resp BP Sys/[place] Pulse Ox Last 24 Hr 98.3 F-101.6 F 138-159 16-30 134-155/84-96 96-99 General appearance: normal weight, mild distress - Head Head exam: Present: normal inspection, normocephalic, atraumatic - Eye Eye exam: Present: EOMI. Absent: conjunctival injection - ENT ENT exam: Present: normal exam, normal external ear exam, normal oropharynx - Neck Neck exam: Present: normal inspection. Absent: lymphadenopathy, meningismus, tenderness, thyromegaly - Respiratory Respiratory exam: Present: prolonged expiratory phase. Absent: rales, rhonchi, stridor, wheezes - GI/Abdominal GI/Abdominal exam: Present: normal bowel sounds, soft - Extremities Exam Extremities exam: Present: normal inspection, normal capillary refill. Absent: edema - Back Exam Back exam: Present: normal inspection - Neurological Exam Neurological exam: Present: alert (Aroused by tactile stimulation; does not open her eyes just withdrawal from pain), other - Skin Skin exam: Present: normal color, warm, dry Results - Labs CBC & BMP: 05/03/17 04:57 05/03/17 04:57 Lab Results: I have reviewed the past 24 hour labs <Aman Henry - Last Filed: 05/04/17 18:41> Hospitalist: Subjective Interval history: Patient seen and examined independently of KEESHA Weiss, agree with assessment and plan as documented. Discussion with patient's brother and his way. They have decided to purse true comfort care. Antibiotics and labs discontinued. Morphine and Ativan prn. Exam - Constitutional Vitals: Period Temp Pulse Resp BP Sys/[place] Pulse Ox Last 24 Hr 98.3 F-101.6 F 138-159 16-30 134-155/85-97 93-99 Results - Labs CBC & BMP: 05/03/17 04:57 05/03/17 04:57
[2017-05-04] MEDS: MORPHINE 2 MG/1 ML SYRINGE IV PRN ×3 (13:25→22:51)
[2017-05-04] MEDS ORDERED: LORazepam 2 MG/1 ML VIAL IV PRN (16:28)
[2017-05-05 02:41] VITALS: BP 118/74
--- NOTE | 2017-05-10 12:53 | Physician Query Form ---
CLICK EDIT DOCUMENT TO SELECT QUERY ANSWER --> OK --> SIGN Adelita Sheppard RN Clinical Assembly Repairer W) [phone] (f) [phone] [email or web address] PROVIDERS: Make your selection(s) from the choices in EACH section by typing an "x" and enter comments in the comment section. Please use your independent medical judgment in providing your response. This request does not imply that any particular answer is desired or expected. CLINICAL INDICATORS: (Providers should not edit this section) Pt. admitted with sepsis and aspiration pneumonia. Based on documentation of "She was tachypneic with respirations at 36 and hypoxic with O2 sats around 83 on 15L by NRB". If possible, please further clarify the type and acuity of respiratory diagnosis : ACUITY: ( x) Acute ( ) Chronic ( ) Acute on Chronic TYPE: (x ) Respiratory failure with hypoxia ( ) Respiratory failure with hypercapnia ( ) Respiratory Arrest ( ) Postprocedural/postoperative respiratory failure ( ) Respiratory Insufficiency ( ) ARDS (Adult/Acute Respiratory Distress Syndrome) ( ) Other, please specify: ( ) Clinically unable to determine Recognized criteria for respiratory failure PH <7.35 or >7.45 PO2 <60 PCO2 >50 RR >24 O2 Sat <90% on RA or <95% on O2 Use of accessory muscles Unable to speak in full sentences Intubation is not required COMMENTS: PLEASE ALSO DOCUMENT RESPONSE IN PROGRESS NOTES AND/OR DISCHARGE SUMMARY Use of terms such as suspected, likely, or probable (associated with a specific diagnosis that is being evaluated, monitored, or treated as if it exists) are acceptable and can be restated in the discharge summary if not ruled out. MTDD
== END 2017-05-05 05:19 | disposition expired | DRG 871 ==
LOC: EDUNIT# → EDBD → N.ED 01:42 → N.EDINP 04:46 → SUATTDRO 04:46 → N.3E 05:22
PROVIDERS: ADMIT Internal Medicine; ATTEND Internal Medicine